=== PATIENT | male | born 1950 | race Caucasian/White ===

== ENCOUNTER 2021-09-10 08:01 | Outpatient (REF) | payer OTHER, SELFPAY ==
[2021-09-10 11:27] LABS: MANUAL DIFF FLAG NO
[2021-09-10 11:49] LABS: Basophils Absolute Auto 0.1 X10*3/uL (0.0-0.2); Basophils Percent Auto 1.5 % (0-2); Eosinophils Absolute Auto 0.4 X10*3/uL (0.0-0.4); Eosinophils Percent Auto 6.6 % (0-4); Hematocrit 50.4 % (42.0-52.0); Hemoglobin 17.2 g/dl (14.0-18.0); Imm Gran Abs Auto 0.01 X10*3/uL (0.00-0.03); Imm Gran Pct Auto 0.2 % (0.0-0.4); Lymphocytes Absolute Auto 1.6 X10*3/uL (1.2-4.9); Lymphocytes Percent Auto 30.1 % (20-40); Mean Corpuscular HGB Conc 34.1 g/dl (31.0-36.0); Mean Corpuscular Hemoglobin 32.3 pg (27.0-33.0); Mean Corpuscular Volume 94.7 fL (80.0-98.0); Mean Platelet Volume 10.4 fL (9.4-12.4); Monocytes Absolute Auto 0.5 X10*3/uL (0.1-1.2); Neutrophils Absolute Auto 2.7 x10*3/uL (2.0-8.3); Neutrophils Percent Auto 51.6 % (45-73); Platelet Count 205 X10*3/uL (160-400); Red Blood Count 5.32 X10*6/uL (4.60-5.80); Red Cell Distribution Width 13.5 % (11.0-16.0); White Blood Count 5.3 X10*3/uL (4.8-10.8)
[2021-09-10 12:05] LABS: Creatinine Urine 315.66 mg/dL; Microalbum/Creatinine Ratio Ur 43.7 ug/mg cr
[2021-09-10 12:08] LABS: Alanine Aminotransferase 56 U/L (0-40); Alkaline Phosphatase 62 U/L (39-117); Anion Gap 13 (12-20); Aspartate Amino Transferase 48 U/L (5-37); Bilirubin Total 1.8 mg/dL (0.0-1.0); Blood Urea Nitrogen 12 mg/dL (9-16); Calcium 9.2 mg/dL (8.4-10.2); Carbon Dioxide 25 mmol/L (22-29); Chloride 107 mmol/L (96-108); Cholesterol 191 mg/dL; Estimated Glomerular Filt Rate > 60; Glucose Fasting 167 mg/dL (60-99); HDL Cholesterol 43 mg/dL; LDL Cholesterol Calculated 125 mg/dl; Potassium 4.5 mmol/L (3.3-5.1); Sodium 140 mmol/L (135-145); Total Protein 6.8 g/dL (6.5-8.0); Triglycerides 115 mg/dL
[2021-09-10 12:20] LABS: Prostate Specific Antigen Scr 0.68 ng/mL (<0.05-4.0); TSH reflex Free T4 0.65 uIU/mL (0.32-4.0)
[2021-09-10 12:28] LABS: Erythrocyte Sedimentation Rate 2 MM/HR (0-15)
[2021-09-10 12:47] LABS: Uric Acid 4.4 mg/dL (3.4-7.0)
[2021-09-12 14:41] LABS: CRP High Sensitivity 1.7 mg/L
== END 2021-09-10 08:02 | disposition home or self-care (01) ==
LOC: HO.HMGCLDS 08:01
PROVIDERS: PCP Family Medicine; Visit Provider Family Medicine
DX: Z00.00 Encounter for general adult medical examination without abnormal findings (principal); M10.9 Gout, unspecified; I10 Essential (primary) hypertension; Z13.29 Encounter for screening for other suspected endocrine disorder; Z12.5 Encounter for screening for malignant neoplasm of prostate
CPT/HCPCS: 36415; 80053; 80061; 82043; 84153; 84443; 84550; 85025; 85652; 86141

== ENCOUNTER 2021-10-07 08:59 | Outpatient (REF) | payer OTHER, SELFPAY ==
[2021-10-07 11:42] LABS: Alanine Aminotransferase 46 U/L (0-40); Albumin Level 4.1 g/dL (3.5-5.0); Alkaline Phosphatase 61 U/L (39-117); Anion Gap 13 (12-20); Aspartate Amino Transferase 41 U/L (5-37); Bilirubin Total 1.4 mg/dL (0.0-1.0); Blood Urea Nitrogen 12 mg/dL (9-16); Calcium 9.2 mg/dL (8.4-10.2); Carbon Dioxide 25 mmol/L (22-29); Chloride 106 mmol/L (96-108); Estimated Glomerular Filt Rate > 60; Glucose Fasting 131 mg/dL (60-99); Potassium 5.2 mmol/L (3.3-5.1); Sodium 139 mmol/L (135-145); Total Protein 6.7 g/dL (6.5-8.0)
== END 2021-10-07 09:00 | disposition home or self-care (01) ==
LOC: HO.WFDLDS 08:59
PROVIDERS: Visit Provider Family Medicine
DX: Z00.00 Encounter for general adult medical examination without abnormal findings (principal); E11.9 Type 2 diabetes mellitus without complications
CPT/HCPCS: 36415; 80053

== ENCOUNTER 2021-11-25 08:51 | Outpatient (REF) | payer OTHER, SELFPAY ==
[2021-11-25 12:51] LABS: Alanine Aminotransferase 44 U/L (0-40); Albumin Level 3.9 g/dL (3.5-5.0); Alkaline Phosphatase 55 U/L (39-117); Anion Gap 14 (12-20); Aspartate Amino Transferase 37 U/L (5-37); Bilirubin Total 1.2 mg/dL (0.0-1.0); Blood Urea Nitrogen 13 mg/dL (9-16); Calcium 9.1 mg/dL (8.4-10.2); Carbon Dioxide 25 mmol/L (22-29); Chloride 105 mmol/L (96-108); Estimated Glomerular Filt Rate > 60; Glucose Fasting 135 mg/dL (60-99); Potassium 4.2 mmol/L (3.3-5.1); Sodium 140 mmol/L (135-145); Total Protein 6.7 g/dL (6.5-8.0)
== END 2021-11-25 08:52 | disposition home or self-care (01) ==
LOC: HO.WFDLDS 08:51
PROVIDERS: Visit Provider Family Medicine
DX: Z00.00 Encounter for general adult medical examination without abnormal findings (principal); R74.8 Abnormal levels of other serum enzymes; M10.9 Gout, unspecified
CPT/HCPCS: 36415; 80053; 84550

== ENCOUNTER 2022-03-04 08:35 | Outpatient (REF) | payer OTHER, SELFPAY ==
[2022-03-04 10:24] LABS: Alanine Aminotransferase 42 U/L (0-40); Albumin Level 4.1 g/dL (3.5-5.0); Alkaline Phosphatase 60 U/L (39-117); Anion Gap 15 (12-20); Aspartate Amino Transferase 31 U/L (5-37); Blood Urea Nitrogen 16 mg/dL (9-16); Calcium 9.6 mg/dL (8.4-10.2); Carbon Dioxide 26 mmol/L (22-29); Chloride 105 mmol/L (96-108); Estimated Glomerular Filt Rate > 60; Glucose Random 123 mg/dL (60-115); Potassium 4.5 mmol/L (3.3-5.1); Sodium 141 mmol/L (135-145); Total Protein 6.8 g/dL (6.5-8.0)
[2022-03-04 10:50] LABS: Bilirubin Total 1.7 mg/dL (0.0-1.0)
== END 2022-03-04 08:36 | disposition home or self-care (01) ==
LOC: HO.LAB 08:35
PROVIDERS: PCP Family Medicine; Visit Provider Family Medicine
DX: R74.8 Abnormal levels of other serum enzymes (principal)
CPT/HCPCS: 36415; 80053

== ENCOUNTER 2022-06-02 10:12 | Outpatient (REF) | payer OTHER, SELFPAY ==
[2022-06-02 11:23] LABS: Estimated Average Glucose 131 mg/dL; Hemoglobin A1c % 6.2 %
[2022-06-02 11:28] LABS: Alanine Aminotransferase 45 U/L (0-40); Albumin Level 4.2 g/dL (3.5-5.0); Alkaline Phosphatase 61 U/L (39-117); Anion Gap 14 (12-20); Aspartate Amino Transferase 31 U/L (5-37); Bilirubin Total 1.7 mg/dL (0.0-1.0); Blood Urea Nitrogen 15 mg/dL (9-16); Calcium 9.9 mg/dL (8.4-10.2); Carbon Dioxide 27 mmol/L (22-29); Chloride 106 mmol/L (96-108); Estimated Glomerular Filt Rate > 60; Glucose Fasting 131 mg/dL (60-99); Potassium 5.3 mmol/L (3.3-5.1); Sodium 142 mmol/L (135-145); Total Protein 7.1 g/dL (6.5-8.0)
== END 2022-06-02 10:13 | disposition home or self-care (01) ==
LOC: HO.LAB 10:12
PROVIDERS: PCP Family Medicine; Visit Provider Family Medicine
DX: Z00.00 Encounter for general adult medical examination without abnormal findings (principal); R74.8 Abnormal levels of other serum enzymes; R73.01 Impaired fasting glucose
CPT/HCPCS: 36415; 80053; 83036

== ENCOUNTER 2022-06-27 10:14 | Outpatient (REF) | payer OTHER, SELFPAY ==
--- NOTE | ~2022-06-27 | US_ITS ---
EXAMINATION: US ABDOMEN LIMITED WITH LIVER ELASTOGRAPHY CLINICAL INFORMATION: Abnormal liver function tests COMPARISON: None available. TECHNIQUE: Real-time imaging of the abdominal viscera. Noninvasive ultrasound liver fibrosis assessment is performed using Ashlyn ElastPQ point quantification shear wave elastography (2D-SWE) with a C5-2 MHz transducer. Multiple elastography samples are obtained. FINDINGS: PANCREAS: Normal. LIVER: Liver echotexture is slightly increased. The liver is normal in size and contour. No focal lesion or intrahepatic biliary duct dilatation. The right lobe measures 14 cm in length. The left lobe measures 10 cm in length. Portal flow is normal Shear wave liver elastography median stiffness is 2 m/s (reference: normal median stiffness is 1.3 m/s or less). IQR/median stiffness to assess sampling precision is 0.02 (reference: good quality data set is IQR/median stiffness of 0.15 or less). Confidence interval is 60%. GALLBLADDER: There is a 6 x 3 x 7 mm echogenic nonmobile nonshadowing density adjacent to the gallbladder wall questionable a stone adherent to the gallbladder wall or polyp. The gallbladder is otherwise normal. No wall thickening. COMMON BILE DUCT: Normal in caliber measuring 0.4 cm in diameter. RIGHT KIDNEY: Normal. No hydronephrosis. No renal calculi or focal parenchymal lesions. The kidney measures 11.4 cm in maximum dimension. FREE FLUID: None. US/US abdomen ugarte w elastography IMPRESSION: 1. Impression: echogenic liver. Questions small adherent gallstone versus gallbladder wall polyp. 2. Liver elastography: Adequate liver sampling. Increased liver stiffness suggestive of compensated advanced chronic liver disease but need further test for confirmation. REFERENCE: Society of Radiologists in Ultrasound Liver Stiffness Thresholds (2020): LIVER STIFFNESS THRESHOLDS: *Liver Stiffness equal or less than 1.3 m/s: High probability of being normal. *Liver Stiffness less than 1.7 m/s: In the absence of other known clinical signs, rules out compensated advanced chronic liver disease. *Liver Stiffness 1.7-2.1 m/s: Suggestive of compensated advanced chronic liver disease but need further test for confirmation. *Liver Stiffness over 2.1 m/s: Rules in compensated advanced chronic liver disease. *Liver Stiffness over 2.4 m/s: Suggestive of clinically significant portal hypertension. QUALITY OF DATA SET: *IQR/Median value equal or less than 0.15 implies a quality data set. *IQR/Median value over 0.15 implies a poor quality data set. SIGNIFICANT CHANGE FROM PRIOR EXAM: Significant change if liver stiffness measurement is 10% or greater from prior exam. OTHER CONSIDERATIONS: The stage of liver fibrosis may be overestimated in the setting of acute hepatitis, liver inflammation, elevated liver function tests, hepatic vascular congestion, obstructive cholestasis, non-fasting state, and infiltrative diseases such as amyloidosis and lymphoma. In some patients with NAFLD, the liver stiffness thresholds for compensated advanced chronic liver disease may be lower. In causes other than viral hepatitis and NAFLD, liver stiffness thresholds are not well established.
== END 2022-06-27 10:15 | disposition home or self-care (01) ==
LOC: HO.US 10:14
PROVIDERS: PCP Family Medicine; Visit Provider Family Medicine
DX: R74.8 Abnormal levels of other serum enzymes (principal)
CPT/HCPCS: 76705; 76981

== ENCOUNTER 2022-12-05 08:28 | Outpatient (AMB) | payer OTHER, SELFPAY ==
--- NOTE | 2022-12-05 08:31 | A.OFFPC_ITS ---
Vital Signs 12/05/22 08:43 Height 6 ft 4 in Weight 236 lb 4 oz BMI 28.8 BP 122/58 L Blood Pressure Location Lt brachial Position Sitting Respiration 15 Pulse 84 Pulse Source Pulse Oximeter Temp 98.6 F Temp Source Oral Pulse Oximetry (%) 96 Oxygen Delivery Method Room Air Intake Visit Reasons: f/u diabetes Intake Note: Patient is here to follow up with diabetic care, last A1C was on 08/31/22 with a result of 6.1%. Patient has external labs scanned into his chart dated 08/23/22. Patient reports he will need refills of Lorazepam and Prednisone. 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 Partial refill upon request. 30 days metformin 500 mg PO BIDWMEAL 90 days prednisone 10 mg PO DAILY 10 days valsartan 160 mg PO DAILY 90 days Tobacco use date assessed: 06/05/22 Fall risk assessment: No Falls in past year Last assessed Fall Risk: 12/05/22 Dental Screening Dental Screen Date: 12/05/22 Did you have a dental visit in the last 12 months?: Yes Did you have a dental problem in the last 6 months where you did not have access to dental care?: No Was dental information given to patient?: Patient has dentist HPI f/u diabetes HPI Details 72 y/o male presents to f/u diabetes and anxiety. Last A1c 08/31/22 6.1%. A1c today 12/05/22 is 6.1%. He is on metformin 500mg b.i.d. Blood pressure today 122/58. He is on valsartan 160mg daily. He is on lorazepam and citalopram 20mg for his anxiety. PFSH Medical History Diverticulitis Diverticulitis large intestine Surgical History History of open reduction and internal fixation (ORIF) procedure Family History Mother Cerebral hemorrhage Father Myocardial infarction Social History Housing: House Patient Tobacco Use Status: Never used Tobacco e-Cigarette/Vaping Use: Never Used Second Hand Smoke Exposure: No service: No Current occupational status: retired Current occupational exposures/hazards: No Cognitive needs: No Hearing needs: No Vision needs: No Questionnaire Thrive Questionnaire Date Thrive assessed: 06/05/22 MONSTER-7 AMB Questionnaire MONSTER-7 Date MONSTER - 7 assessed: 06/05/22 Source: Developed by Drs. Clarke Virgen, Krystle Kimbrough, Trenton Perea and colleagues, with an educational ciara from [employer]. Physical exam (Primary Care) Vital Signs: Last Vital Signs Temp 98.6 F 12/05/22 08:43 Pulse 84 12/05/22 08:43 Resp 15 12/05/22 08:43 BP 122/58 L 12/05/22 08:43 Pulse Ox 96 12/05/22 08:43 Oxygen Delivery Method Room Air 12/05/22 08:43 BMI result Body Mass Index 28.8 Tobacco/Smoking Status: Tobacco use Status Tobacco use date assessed 06/05/22 12/05/22 08:34 Patient Tobacco Use Status Never used Tobacco 12/05/22 08:34 e-Cigarette/Vaping Use Never Used 12/05/22 08:34 Thrive Assessment: Date of Thrive Assessment Date Thrive assessed 06/05/22 12/05/22 08:34 Results AMB Hemoglobin A1c AMB Hemoglobin A1c 6.1 % Last Edit by Alma Rosa Salas on 12/05/22 08:5 6 Assessment and Plan Assessment & Plan (1) Diabetes: Code(s): E11.9 - Type 2 diabetes mellitus without complications Plan: A1c steady as 6.1%. Goal is less than 7.0% Continue metformin (2) Anxiety: Code(s): F41.9 - Anxiety disorder, unspecified Plan: Stable on citalopram and lorazepam Continue current medication regimen (3) Essential hypertension: Code(s): I10 - Essential (primary) hypertension Plan: Blood pressure is controlled. Goal is less than 140/90 Continue valsartan Medications: Refilled prednisone 10 mg PO DAILY 10 tabs 0RF 10 days lorazepam 1-2mg PO bedtime PRN; [employer]Pat verified. Partial refill upon request. 15 tabs 0RF anxiety 30 days Coding Level of Care Code Est Pt Level 4 (90795) Diagnoses Diabetes E11.9 Anxiety F41.9 Essential hypertension I10
[2022-12-05 08:43] VITALS: BP 122/58; PULSE 84; RESP 15; TEMP 37; O2SAT 96; BMI 28.8
== END 2022-12-05 09:00 | disposition home or self-care (01) ==
PROVIDERS: PCP Family Medicine; Visit Provider Family Medicine
DX: E11.9 Type 2 diabetes mellitus without complications (principal); F41.9 Anxiety disorder, unspecified; I10 Essential (primary) hypertension
CPT/HCPCS: 99214

== ENCOUNTER 2023-05-21 10:34 | Outpatient (REF) | payer OTHER, SELFPAY ==
[2023-05-21 13:40] LABS: MANUAL DIFF FLAG NO
[2023-05-21 13:49] LABS: Basophils Absolute Auto 0.1 X10*3/uL (0.0-0.2); Basophils Percent Auto 0.9 % (0-2); Eosinophils Absolute Auto 0.5 X10*3/uL (0.0-0.4); Hematocrit 47.6 % (42.0-52.0); Hemoglobin 16.4 g/dl (14.0-18.0); Imm Gran Abs Auto 0.02 X10*3/uL (0.00-0.03); Imm Gran Pct Auto 0.4 % (0.0-0.4); Lymphocytes Absolute Auto 2.1 X10*3/uL (1.2-4.9); Lymphocytes Percent Auto 36.4 % (20-40); Mean Corpuscular HGB Conc 34.5 g/dl (31.0-36.0); Mean Corpuscular Hemoglobin 31.8 pg (27.0-33.0); Mean Corpuscular Volume 92.2 fL (80.0-98.0); Mean Platelet Volume 9.6 fL (9.4-12.4); Monocytes Absolute Auto 0.4 X10*3/uL (0.1-1.2); Monocytes Percent Auto 7.8 % (2-11); Neutrophils Absolute Auto 2.6 x10*3/uL (2.0-8.3); Neutrophils Percent Auto 46.5 % (45-73); Platelet Count 193 X10*3/uL (160-400); Red Blood Count 5.16 X10*6/uL (4.60-5.80); Red Cell Distribution Width 12.8 % (11.0-16.0); White Blood Count 5.6 X10*3/uL (4.8-10.8)
[2023-05-21 14:16] LABS: Appearance Urine Clear; Color Urine Yellow; Glucose Urine UA Negative (Negative); Leukocyte Esterase Urine Negative (Negative); Nitrite Urine Negative (Negative); Urine Blood Negative (Negative); Urine Ketones Negative (Negative); Urine Protein Trace mg/dL (Neg-Trace)
[2023-05-21 14:26] LABS: Creatinine Urine 142.56 mg/dL; Microalbum/Creatinine Ratio Ur 80.6 ug/mg cr (<30)
[2023-05-21 14:32] LABS: Alanine Aminotransferase 26 U/L (0-40); Albumin Level 3.7 g/dL (3.5-5.0); Alkaline Phosphatase 52 U/L (39-117); Anion Gap 9 (12-20); Aspartate Amino Transferase 24 U/L (5-37); Bilirubin Total 0.9 mg/dL (0.0-1.0); Blood Urea Nitrogen 15 mg/dL (9-16); Calcium 9.2 mg/dL (8.4-10.2); Carbon Dioxide 28 mmol/L (22-29); Chloride 106 mmol/L (96-108); Cholesterol 154 mg/dL (<200); Estimated Glomerular Filt Rate > 60; Glucose Fasting 123 mg/dL (60-99); HDL Cholesterol 40 mg/dL (>40); LDL Cholesterol Calculated 93 mg/dL (<100); Potassium 4.3 mmol/L (3.3-5.1); Sodium 139 mmol/L (135-145); Total Protein 6.9 g/dL (6.5-8.0); Triglycerides 106 mg/dL (<150)
[2023-05-21 14:47] LABS: TSH reflex Free T4 0.93 uIU/mL (0.32-4.0)
[2023-05-21 14:49] LABS: Prostate Specific Antigen Scr 1.17 ng/mL (<0.05-4.0)
== END 2023-05-21 10:35 | disposition home or self-care (01) ==
LOC: HO.WFDLDS 10:34
PROVIDERS: Visit Provider Family Medicine
DX: Z00.00 Encounter for general adult medical examination without abnormal findings (principal); Z12.5 Encounter for screening for malignant neoplasm of prostate; I10 Essential (primary) hypertension
CPT/HCPCS: 36415; 80053; 80061; 81003; 82043; 82570; 84153; 84443; 85025

== ENCOUNTER 2023-05-23 10:56 | Outpatient (AMB) | payer OTHER, SELFPAY ==
--- NOTE | 2023-05-23 10:59 | A.OFFPC_ITS ---
Vital Signs 05/23/23 11:02 Height 6 ft 4 in Weight 237 lb 8 oz BMI 28.9 BP 128/78 Blood Pressure Location Lt brachial Position Sitting Pulse 81 Pulse Source Pulse Oximeter Temp 97 F Temp Source Oral Pulse Oximetry (%) 96 Oxygen Delivery Method Room Air Intake Visit Reasons: CPE with f/u labs and health maint. Intake Note: Patient is here for physical and to follow up on labs. Allergies No Known Allergies Allergy (Verified 05/23/23 11:08) Tobacco use date assessed: 05/23/23 Fall risk assessment: No Falls in past year Last assessed Fall Risk: 05/23/23 Dental Screening Dental Screen Date: 05/23/23 Did you have a dental visit in the last 12 months?: Yes Did you have a dental problem in the last 6 months where you did not have access to dental care?: No Was dental information given to patient?: Patient has dentist HPI CPE with f/u labs and health maint. HPI Details 72 y/o male presents for a CPE with f/u labs and health maintenance. Labs were drawn 05/21/23. Reviewed labs with pt. Elevated fasting glucose of 123 and last A1c in Dec. 6.1%. Triglycerides 106. TC 154. LDL 93. HDL 40. A1c today 05/23/23 6.7%. Pt notes recent colonsocopy and recommended 5 year f/u per pt. [facility] Medical History Diverticulitis Diverticulitis large intestine Surgical History History of open reduction and internal fixation (ORIF) procedure Family History Mother Cerebral hemorrhage Father Myocardial infarction Social History Housing: House Patient Tobacco Use Status: Never used Tobacco e-Cigarette/Vaping Use: Never Used Second Hand Smoke Exposure: No service: No Current occupational status: retired Current occupational exposures/hazards: No Cognitive needs: No Hearing needs: No Vision needs: No Questionnaire PHQ-9 Over the last 2 weeks, how often have you been bothered by any of the following problems? 1. Little interest or pleasure in doing things: not at all 2. Feeling down, depressed, or hopeless: not at all 3. Trouble falling or staying asleep, or sleeping too much: not at all 4. Feeling tired or having little energy: not at all 5. Poor appetite or overeating: not at all 6. Feeling bad about yourself - or that you are a failure or have let yourself or your family down: not at all 7. Trouble concentrating on things, such as reading the newspaper or watching television: not at all 8. Moving or speaking so slowly that other people could have noticed. Or the opposite - being so fidgety or restless that you have been moving around a lot more than usual: not at all 9. Thoughts that you would be better off or of hurting yourself in some way: not at all Total score: 0 Source: Developed by Drs. Clarke Virgen, Krystle Kimbrough, Trenton Perea and colleagues, with an educational ciara from [employer]. Thrive Questionnaire Date Thrive assessed: 05/23/23 I am a: Patient What is your living situation today?: I have a steady place to live Within the past 12 months, did the food you bought not last and you didn't have the money to get more?: Never true Within the past 12 months, did you worry whether your food would run out before you got money to buy more?: Never true Do you have trouble paying for medicines?: No Do you have trouble getting transportation to medical appointments?: No Do you have trouble paying your heating and electricity bill?: No Do you have trouble taking care of your child, family member or friend?: No Do you have trouble with day-to-day activities such as bathing, preparing meals, shopping, managing finances, etc.?: No Are you currently unemployed and looking for a job?: No Are you interested in more education?: No THRIVE Score: 0 AUDIT C Alcohol Use Questionnaire (AUDIT-C) 1. How often do you have a drink containing alcohol?: Monthly or less 2. How many drinks containing alcohol do you have on a typical day when you are drinking?: 1 or 2 3. How often do you have six or more drinks on one occasion?: Never Total Score: 1 MONSTER-7 AMB Questionnaire MONSTER-7 Date MONSTER - 7 assessed: 05/23/23 Feeling nervous, anxious, or on edge: 0 = Not at all Not being able to stop or control worryin = Not at all Worrying too much about different things: 0 = Not at all Trouble relaxin = Not at all Being so restless that it is hard to sit still: 0 = Not at all Becoming easily annoyed or irritable: 0 = Not at all Feeling afraid as if something awful might happen: 0 = Not at all Total MONSTER-7 score (0-4 normal; 5-9 mild; 10-14 moderate; 15-21 severe): 0 Source: Developed by Drs. Clarke Virgen, Krystle Kimbrough, Trenton Perea and colleagues, with an educational ciara from [employer]. Review of Systems Const Denies chills, Denies fatigue, Denies fever(s), Denies headache(s) and Denies weakness Eyes Denies change in vision ENT Denies dizziness, Denies headache(s), Denies hearing loss, Denies nasal congestion, Denies sinus pain, Denies sinus pressure and Denies sore throat Card Denies chest pain, Denies lightheadedness, Denies dyspnea and Denies other (palpitations) Resp Denies cough, Denies dyspnea and Denies wheezing GI Denies abdominal pain, Denies melena, Denies hematochezia, Denies change in bowel habits, Denies dyspepsia and Denies nausea Denies hematuria and Denies dysuria Musc Denies abnormal gait, Denies myalgias, Denies arthralgias, Denies numbness and Denies tingling Skin/Breast Denies rash, Denies unusual bruising and Denies wounds Neuro Denies abnormal gait, Denies dizziness, Denies headache(s), Denies memory loss, Denies numbness, Denies Sensory deficit (Neuro), Denies tingling and Denies weakness Psych Denies anxiety, Denies depression and Denies memory loss Endo Denies cold intolerance, Denies fatigue, Denies heat intolerance, Denies polydipsia and Denies polyuria Man/Lymph Denies easy bleeding and Denies easy bruising Aller/Immun Denies wheezing Physical exam (Primary Care) Vital Signs: Last Vital Signs Temp 97 F 05/23/23 11:02 Pulse 81 05/23/23 11:02 BP 128/78 05/23/23 11:02 Pulse Ox 96 05/23/23 11:02 Oxygen Delivery Method Room Air 05/23/23 11:02 BMI result Body Mass Index 28.9 Tobacco/Smoking Status: Tobacco use Status Tobacco use date assessed 05/23/23 05/23/23 11:12 Patient Tobacco Use Status Never used Tobacco 05/23/23 10:59 e-Cigarette/Vaping Use Never Used 05/23/23 10:59 PHQ-9: PHQ-9 Score PHQ-9: Total score 0 05/23/23 11:19 Thrive Assessment: Date of Thrive Assessment Date Thrive assessed 05/23/23 05/23/23 11:12 Const General: no acute distress, well developed, alert and awake Nutritional Appearance: well nourished Orientation/consciousness: patient oriented x3 HENMT Head: Yes normocephalic and Yes atraumatic Ears: hearing grossly normal bilaterally and TM's normal bilaterally General nose exam: Normal external nose present and Normal nares present Mouth: Normal oral and palatal mucosa present and moist mucous membranes Teeth and gingiva: dentition normal Throat: Yes posterior oropharynx normal Eyes General: appearance normal, both eyes and all related structures Pupils: Equal, round and reactive pupils present and Pupil accommodation reflex normal EOM: EOMs intact bilaterally Neck Neck: Yes normal visual inspection, Yes no lymphadenopathy and Yes trachea midline Thyroid: Thyroid normal Carotids: no bruits Lymphatic: no lymphadenopathy noted Chest Chest palpation & inspection: normal inspection of the chest Resp Effort & Inspection: normal respiratory effort Auscultation: clear to auscultation bilaterally Cardio Rate: regular rate Rhythm: regular rhythm Heart sounds: S1 normal heart sound present, S2 normal heart sound present, no gallops, no murmurs and no rubs Bruits: no abdominal aortic bruits and no carotid bruits GI Palpation (GI): No Abdominal aortic bruit present, Soft to palpation, nontender, No hepatosplenomegaly present and No Rebound tenderness present Auscultation: normal bowel sounds General: Yes no CVA tenderness Back/Spine/Pelvis Back: no CVA tenderness Cervical Spine: cervical ROM normal and No Cervical spine tenderness Thoracic/Lumbar Spine: thoraco-lumbar ROM normal, No pain with thoraco-lumbar ROM, No thoracic spinal tenderness and No lumbar spinal tenderness Skin Lesions: no lesions Rashes: no rashes Trauma: no lacerations or abrasions Wounds: no wounds Nails: normal Neuro General: patient oriented x3 Cranial nerves: Yes Equal, round and reactive pupils present Cognition (Neuro): normal cognition Gait exam (Neuro): Normal gait present Motor exam (neuro): 5/5 motor strength present throughout Sensory Exam: No Sensory deficit (Neuro) Deep tendon reflexes (DTR's): Right patellar reflex intensity grade: 2+ and Left patellar reflex intensity grade: 2+ Extrem General: Yes normal to inspection and No edema Psych Appearance: grossly normal Affect: normal affect Attitude: cooperative Thought process: Normal thought process present Results AMB Hemoglobin A1c AMB Hemoglobin A1c 6.7 % Last Edit by Ariela Jett CMA on 05/23/23 11:24 Assessment and Plan Assessment & Plan (1) Adult general medical exam: Code(s): Z00.00 - Encounter for general adult medical examination without abnormal findings Plan: 72-year-old?male?presents?for?complete?physical?exam Encouraged?healthy?diet?with?active?lifestyle?and?plenty?of?exercise (2) Diabetes: Code(s): E11.9 - Type 2 diabetes mellitus without complications Plan: A1c?has?climbed?but?is?still?less?than?7.0% Encouraged?diabetic?diet,?exercise?and?weight?loss Continue?current?medication?regimen (3) Essential hypertension: Code(s): I10 - Essential (primary) hypertension Plan: Blood?pressure?is?controlled.??Goal?is?less?than?140/90 Continue?current?medication (4) Screening for colon cancer: Code(s): Z12.11 - Encounter for screening for malignant neoplasm of colon Plan: Recent?colonoscopy?at?[facility],? Advised?to?follow-up?in?5?years. Up-to-date (5) Screening for prostate cancer: Code(s): Z12.5 - Encounter for screening for malignant neoplasm of prostate Plan: PSA?is?within?normal?range Continue?annual?screen Orders: Orders AMB Hemoglobin A1c Today Z13.9 - Encounter for screening, unspecified Medications: New cetirizine (All Day Allergy (cetirizine)) 10 mg PO DAILY 90 days PRN 90 tabs 0RF allergy symptoms Coding Level of Care Code Est Pt Level 4 (68891) Diagnoses Adult general medical exam Z00.00 Diabetes E11.9 Essential hypertension I10 Screening for colon cancer Z12.11 Screening for prostate cancer Z12.5
[2023-05-23 11:02] VITALS: BP 128/78; PULSE 81; TEMP 36.1; O2SAT 96; BMI 28.9
== END 2023-05-23 11:37 | disposition home or self-care (01) ==
PROVIDERS: PCP Family Medicine; Visit Provider Family Medicine
DX: Z00.00 Encounter for general adult medical examination without abnormal findings (principal); E11.9 Type 2 diabetes mellitus without complications; I10 Essential (primary) hypertension; Z12.11 Encounter for screening for malignant neoplasm of colon; Z12.5 Encounter for screening for malignant neoplasm of prostate
CPT/HCPCS: 83036; 99397

== ENCOUNTER 2023-08-22 08:14 | Outpatient (AMB) | payer OTHER, SELFPAY ==
[2023-08-22 08:21] VITALS: BP 130/78; PULSE 59; RESP 14; TEMP 36.4; O2SAT 95; BMI 30.9
--- NOTE | 2023-08-22 08:21 | MHC.PC.OV ---
Vital Signs 08/22/23 08:21 Height 6 ft 4 in Weight 254 lb 4 oz BMI 30.9 BP 130/78 Blood Pressure Location Lt brachial Position Sitting Respiration 14 Pulse 59 Pulse Source Pulse Oximeter Temp 97.6 F Temp Source Temporal Artery Scan Pulse Oximetry (%) 95 Oxygen Delivery Method Room Air Intake Visit Reasons: f/u diabetes Intake Note: Patient states he has itching on eyebrows and chin. 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 Partial refill upon request. 30 days metformin 500 mg PO BIDWMEAL 90 days prednisone 10 mg PO DAILY PRN valsartan 160 mg PO DAILY 90 days Tobacco use date assessed: 05/23/23 Fall risk assessment: No Falls in past year Last assessed Fall Risk: 08/22/23 Dental Screening Dental Screen Date: 05/23/23 HPI f/u diabetes HPI Details 73 y/o male presents to f/u diabetes and hypertension. Last A1c 05/23/23 6.7%. A1c today 08/22/23 is 6.8%. He is on metformin 500mg. Blood pressure today is 130/78. He is on valsartan 160mg daily. Pt has complaitns of itching on his eyebrows/chin. HPI Comments History of Present Illness Details Documentation assistance for Rashawn Arechiga MD, was provided by Ti Luna, Director Of User Experience on 08/22/2023 8:55 AM EST. Miller, Dr. Arechiga, have read, observed, and verified documentation. PFSH Medical History Diverticulitis Diverticulitis large intestine Surgical History History of open reduction and internal fixation (ORIF) procedure Family History Mother Cerebral hemorrhage Father Myocardial infarction Social History Housing: House Patient Tobacco Use Status: Never used Tobacco e-Cigarette/Vaping Use: Never Used Second Hand Smoke Exposure: No service: No Current occupational status: retired Current occupational exposures/hazards: No Cognitive needs: No Hearing needs: No Vision needs: No Questionnaire Thrive Questionnaire Date Thrive assessed: 05/23/23 MONSTER-7 AMB Questionnaire MONSTER-7 Date MONSTER - 7 assessed: 05/23/23 Source: Developed by Drs. Clarke Virgen, Krystle Kimbrough, Trenton Perea and colleagues, with an educational ciara from [employer]. Review of Systems Const Denies chills, Denies fatigue, Denies fever(s), Denies headache(s) and Denies weakness ENT Denies dizziness and Denies headache(s) Card Denies dyspnea Resp Denies cough, Denies dyspnea, Denies wheezing and Denies other (shortness of breath) Musc Denies numbness and Denies tingling Neuro Denies dizziness, Denies headache(s), Denies numbness, Denies tingling and Denies weakness Psych Denies anxiety and Denies depression Endo Denies fatigue Aller/Immun Denies wheezing Physical exam (Primary Care) Vital Signs: Last Vital Signs Temp 97.6 F 08/22/23 08:21 Pulse 59 08/22/23 08:21 Resp 14 08/22/23 08:21 BP 130/78 08/22/23 08:21 Pulse Ox 95 08/22/23 08:21 Oxygen Delivery Method Room Air 08/22/23 08:21 BMI result Body Mass Index 30.9 Tobacco/Smoking Status: Tobacco use Status Tobacco use date assessed 05/23/23 08/22/23 08:24 Patient Tobacco Use Status Never used Tobacco 08/22/23 08:24 e-Cigarette/Vaping Use Never Used 08/22/23 08:24 Thrive Assessment: Date of Thrive Assessment Date Thrive assessed 05/23/23 08/22/23 08:24 Const General: well developed; No acute distress Nutritional Appearance: well nourished Orientation/consciousness: patient oriented x3 HENMT Head: Yes normocephalic and Yes atraumatic Eyes General: appearance normal, both eyes and all related structures Pupils: Equal, round and reactive pupils present EOM: EOMs intact bilaterally Resp Effort & Inspection: normal respiratory effort Auscultation: clear to auscultation bilaterally Cardio Rate: regular rate Rhythm: regular rhythm Heart sounds: S1 normal heart sound present, S2 normal heart sound present, no gallops, no murmurs and no rubs Neuro General: patient oriented x3 and gait normal Cranial nerves: Yes Equal, round and reactive pupils present Psych Affect: normal affect Results AMB Hemoglobin A1c AMB Hemoglobin A1c 6.8 % Last Edit by Ariela Jett CMA on 08/22/23 08:41 Results Reviewed Results Reviewed: Laboratory Last Values Hgb A1c (Clinic) 6.8 % (4.0-6.0) H 08/22/23 08:34 Assessment and Plan Assessment & Plan (1) Essential hypertension: Code(s): I10 - Essential (primary) hypertension Plan: There?is?controlled.??Goal?is?less?than?140/90 Continue?current?medication (2) Diabetes: Code(s): E11.9 - Type 2 diabetes mellitus without complications Plan: A1c?climbed?to?6.8%. Still?controlled.??Goal?is?less?than?7.0% Continue?current?medication Encouraged?diet?and?weight?loss (3) Impetigo: Code(s): L01.00 - Impetigo, unspecified Plan: Gave?him?a?script?for?mupirocin?again. He?can?also?use?Hibiclens?OTC?for?prevention (4) Microalbuminuria: Code(s): R80.9 - Proteinuria, unspecified Plan: Following?microalbuminuria He?will?get?urine?studies?and?labs?drawn?prior?to?next?visit Orders: Orders Comprehensive [place]. Panel Fast Today I10 - Essential (primary) hypertension, Z00.00 - Encounter for general adult medical examination without abnormal findings Lipid Panel Today E11.9 - Type 2 diabetes mellitus without complications, Z00.00 - Encounter for general adult medical examination without abnormal findings AMB Hemoglobin A1c Today Z13.9 - Encounter for screening, unspecified Microalbumin, Random (w Creat) Today I10 - Essential (primary) hypertension Medications: Changed From prednisone 10 mg PO DAILY 10 days 10 tabs 0RF To prednisone 10 mg PO DAILY PRN Refilled mupirocin 2% 1 appl topical BID 10 days 15 grams 0RF Coding Level of Care Code Est Pt Level 4 (04525) Diagnoses Essential hypertension I10 Diabetes E11.9 Impetigo L01.00 Microalbuminuria R80.9
== END 2023-08-22 09:08 | disposition home or self-care (01) ==
PROVIDERS: PCP Family Medicine; Visit Provider Family Medicine
DX: I10 Essential (primary) hypertension (principal); E11.9 Type 2 diabetes mellitus without complications; L01.00 Impetigo, unspecified; R80.9 Proteinuria, unspecified
CPT/HCPCS: 83036; 99214

== ENCOUNTER 2023-11-01 07:08 | Outpatient (REF) | payer OTHER, SELFPAY ==
[2023-11-01 08:46] LABS: Alanine Aminotransferase 31 U/L (0-40); Alkaline Phosphatase 49 U/L (39-117); Anion Gap 10 (12-20); Aspartate Amino Transferase 26 U/L (5-37); Bilirubin Total 1.1 mg/dL (0.0-1.0); Blood Urea Nitrogen 13 mg/dL (9-16); Calcium 9.9 mg/dL (8.4-10.2); Carbon Dioxide 29 mmol/L (22-29); Chloride 107 mmol/L (96-108); Cholesterol 160 mg/dL (<200); Estimated Glomerular Filt Rate > 60; Glucose Fasting 124 mg/dL (60-99); HDL Cholesterol 45 mg/dL (>40); LDL Cholesterol Calculated 94 mg/dL (<100); Potassium 4.4 mmol/L (3.3-5.1); Sodium 142 mmol/L (135-145); Total Protein 6.9 g/dL (6.5-8.0); Triglycerides 108 mg/dL (<150)
[2023-11-01 08:49] LABS: Creatinine Urine 168.86 mg/dL; Microalbum/Creatinine Ratio Ur 39.6 ug/mg cr (<30)
== END 2023-11-01 07:09 | disposition home or self-care (01) ==
LOC: HO.LAB 07:08
PROVIDERS: PCP Family Medicine; Visit Provider Family Medicine
DX: Z00.00 Encounter for general adult medical examination without abnormal findings (principal); E11.9 Type 2 diabetes mellitus without complications; I10 Essential (primary) hypertension
CPT/HCPCS: 36415; 80053; 80061; 82043; 82570

== ENCOUNTER 2023-11-02 09:14 | Outpatient (AMB) | payer OTHER, SELFPAY ==
--- NOTE | 2023-11-02 09:25 | A.OFFPC_ITS ---
Vital Signs 11/02/23 09:27 Height 6 ft 4 in Weight 256 lb 8 oz BMI 31.2 BP 122/62 Blood Pressure Location Lt brachial Position Sitting Pulse 63 Pulse Source Pulse Oximeter Pulse Oximetry (%) 94 Oxygen Delivery Method Room Air Intake Visit Reasons: f/u diabetes, hypertension Intake Note: Patient is here to follow up on HTN, DM. Evp Operations Required: No Specimen Collector: Not Required per policy Accompanied by: Self / Same As Patient Allergies No Known Allergies Allergy (Verified 11/02/23 09:27) Medication List - Last Reconciled 11/02/23 by Rashawn Arechiga MD albuterol sulfate 90 mcg/actuation 1 puff PO Q6H PRN 30 days ergocalciferol (vitamin D2) 1,250 mcg PO QWEEK 90 days ezetimibe 10 mg PO DAILY 90 days fluticasone furoate-vilanterol 200-25 mcg/dose (Breo Ellipta) 1 ea inhalation DAILY 30 days indomethacin 50 mg PO TID 10 days lorazepam 1-2mg PO bedtime PRN; [employer] verified. Partial refill upon request. 30 days metformin 500 mg PO BIDWMEAL 90 days mupirocin 2% 1 appl topical BID 10 days prednisone 10 mg PO DAILY PRN valsartan 160 mg PO DAILY 90 days Tobacco use date assessed: 11/02/23 Fall risk assessment: No Falls in past year Last assessed Fall Risk: 11/02/23 Dental Screening Dental Screen Date: 05/23/23 HPI f/u diabetes, hypertension HPI Details 73 y/o male presents to f/u diabetes, hy pertension. Blood pressure today 122/62. He is on valsartan 160mg daily. Last A1c 08/22/23 6.8%. A1c today 11/02/23 is 6.5%. [facility] Medical History Diverticulitis Diverticulitis large intestine Surgical History History of open reduction and internal fixation (ORIF) procedure Family History Mother Cerebral hemorrhage Father Myocardial infarction Social History (Updated 11/02/23 @ 09:32 by ISAAC Tierney) Housing: House Alcohol intake: never Patient Tobacco Use Status: Never used Tobacco e-Cigarette/Vaping Use: Never Used Second Hand Smoke Exposure: No service: No Current occupational status: retired Current occupational exposures/hazards: No Cognitive needs: No Hearing needs: No Vision needs: No Questionnaire Thrive Questionnaire Date Thrive assessed: 05/23/23 MONSTER-7 AMB Questionnaire MONSTER-7 Date MONSTER - 7 assessed: 05/23/23 Source: Developed by Drs. Clarke Virgen, Krystle Kimbrough, Trenton Perea and colleagues, with an educational ciara from [employer]. Review of Systems Const Denies chills, Denies fatigue, Denies fever(s), Denies headache(s) and Denies weakness ENT Denies dizziness and Denies headache(s) Card Denies dyspnea Resp Denies cough, Denies dyspnea, Denies wheezing and Denies other (shortness of breath) Musc Denies numbness and Denies tingling Neuro Denies dizziness, Denies headache(s), Denies numbness, Denies tingling and Denies weakness Psych Denies anxiety and Denies depression Endo Denies fatigue Aller/Immun Denies wheezing Physical exam (Primary Care) Vital Signs: Last Vital Signs Pulse 63 11/02/23 09:27 BP 122/62 11/02/23 09:27 Pulse Ox 94 11/02/23 09:27 Oxygen Delivery Method Room Air 11/02/23 09:27 BMI result Body Mass Index 31.2 Tobacco/Smoking Status: Tobacco use Status Tobacco use date assessed 11/02/23 11/02/23 09:32 Patient Tobacco Use Status Never used Tobacco 11/02/23 09:32 e-Cigarette/Vaping Use Never Used 11/02/23 09:32 Thrive Assessment: Date of Thrive Assessment Date Thrive assessed 05/23/23 11/02/23 09:32 Const General: well developed; No acute distress Nutritional Appearance: well nourished Orientation/consciousness: patient oriented x3 HENMT Head: Yes normocephalic and Yes atraumatic Eyes General: appearance normal, both eyes and all related structures Pupils: Equal, round and reactive pupils present EOM: EOMs intact bilaterally Resp Effort & Inspection: normal respiratory effort Neuro General: patient oriented x3 and gait normal Cranial nerves: Yes Equal, round and reactive pupils present Psych Affect: normal affect Results AMB Hemoglobin A1c AMB Hemoglobin A1c 6.5 % Last Edit by ISAAC Tierney on 11/02/23 09:42 Assessment and Plan Assessment & Plan (1) Diabetes: Code(s): E11.9 - Type 2 diabetes mellitus without complications Plan: A1c?improved?to?6.5%.??Goal?is?less?than?7.0% Patient?does?note?that?he?is?recently?gained?some?w eight?and?encouraged?weight?loss Continue?current?diabetic?diet?and?medication?regimen Reminded?patient?he?should?have?a?diabetic?eye?exam?each?year. ?Sees??Jayesh.??Requesting?most?recent?note (2) Essential hypertension: Code(s): I10 - Essential (primary) hypertension Plan: Blood?pressure?is?controlled?on?valsartan.??Goal?is?less?than?140/90 Continue?current?medication Orders: Orders AMB Hemoglobin A1c Today E11.9 - Type 2 diabetes mellitus without complications Medications: Refilled mupirocin 2% 1 appl topical BID 10 days 15 grams 0RF lorazepam 1-2mg PO bedtime PRN; MassPat verified. Partial refill upon request. 30 days 15 tabs 0RF anxiety Coding Level of Care Code Est Pt Level 3 (05547) Diagnoses Diabetes E11.9 Essential hypertension I10
[2023-11-02 09:27] VITALS: BP 122/62; PULSE 63; O2SAT 94; BMI 31.2
== END 2023-11-02 09:48 | disposition home or self-care (01) ==
PROVIDERS: PCP Family Medicine; Visit Provider Family Medicine
DX: E11.9 Type 2 diabetes mellitus without complications (principal); I10 Essential (primary) hypertension
CPT/HCPCS: 83036; 99213

== ENCOUNTER 2024-02-04 08:19 | Outpatient (AMB) | payer OTHER, SELFPAY ==
--- NOTE | 2024-02-04 08:35 | A.OFFPC_ITS ---
Vital Signs 02/04/24 08:38 Height 6 ft 4 in Weight 249 lb 2 oz BMI 30.3 BP 139/76 Blood Pressure Location Lt brachial Position Sitting Respiration 16 Pulse 76 Pulse Source Pulse Oximeter Temp 97.9 F Temp Source Temporal Artery Scan Pulse Oximetry (%) 96 Oxygen Delivery Method Room Air Intake Visit Reasons: f/u diabetes, hypertension Intake Note: f/u DM,HTN Allergies No Known Allergies Allergy (Verified 02/04/24 08:37) Medication List - Last Reconciled 02/04/24 by Rashawn Arechiga MD albuterol sulfate 90 mcg/actuation 1 puff PO Q6H PRN 30 days clindamycin phosphate 1% 1 appl topical DAILY 30 days ergocalciferol (vitamin D2) 1,250 mcg PO QWEEK 90 days ezetimibe 10 mg PO DAILY 90 days fluticasone furoate-vilanterol 200-25 mcg/dose (Breo Ellipta) 1 ea inhalation DAILY 30 days indomethacin 50 mg PO TID 10 days lorazepam 1-2mg PO bedtime PRN; [employer] verified. Partial refill upon request. 30 days metformin 500 mg PO BIDWMEAL 90 days mupirocin 2% 1 appl topical BID 10 days prednisone 10 mg PO DAILY PRN 10 days valsartan 160 mg PO DAILY 90 days Tobacco use date assessed: 11/02/23 Dental Screening Dental Screen Date: 05/23/23 HPI f/u diabetes, hypertension HPI Details 73 y/o male presents to f/u diabetes, hy pertension. Blood pressure today 139/76. He is on valsartan 160mg daily. Prior A1c 11/02/23 6.5%. A1c today 02/04/24 is 6.4%. He is on metformin 500mg b.i.d. Notes he had a recent eye exam. Has lost some weight since last office visit in October - 256 lbs to 249 lbs. HPI Comments History of Present Illness Details Documentation assistance for Rashawn Arechiga MD, was provided by Ti Luna, Customer Service Representative Teller on 02/04/2024 at 8:52 AM NIKO. I, Dr. Arechiga, have read, observed, and verified documentation. [facility] Medical History Diverticulitis Diverticulitis large intestine Surgical History History of open reduction and internal fixation (ORIF) procedure Family History Mother Cerebral hemorrhage Father Myocardial infarction Social History (Updated 11/02/23 @ 09:32 by ISAAC Tierney) Housing: House Alcohol intake: never Patient Tobacco Use Status: Never used Tobacco e-Cigarette/Vaping Use: Never Used Second Hand Smoke Exposure: No service: No Current occupational status: retired Current occupational exposures/hazards: No Cognitive needs: No Hearing needs: No Vision needs: No Questionnaire PHQ-9 Over the last 2 weeks, how often have you been bothered by any of the following problems? 1. Little interest or pleasure in doing things: not at all 2. Feeling down, depressed, or hopeless: not at all 3. Trouble falling or staying asleep, or sleeping too much: not at all 4. Feeling tired or having little energy: not at all 5. Poor appetite or overeating: not at all 6. Feeling bad about yourself - or that you are a failure or have let yourself or your family down: not at all 7. Trouble concentrating on things, such as reading the newspaper or watching television: not at all 8. Moving or speaking so slowly that other people could have noticed. Or the opposite - being so fidgety or restless that you have been moving around a lot more than usual: not at all 9. Thoughts that you would be better off or of hurting yourself in some way: not at all Total score: 0 Source: Developed by Drs. Clarke Virgen, Krystle Kimbrough, Trenton Perea and colleagues, with an educational ciara from [employer]. Thrive Questionnaire Date Thrive assessed: 01/29/24 I am a: Patient What is your living situation today?: I have a steady place to live Within the past 12 months, did the food you bought not last and you didn't have the money to get more?: Never true Within the past 12 months, did you worry whether your food would run out before you got money to buy more?: Never true Do you have trouble paying for medicines?: No Do you have trouble getting transportation to medical appointments?: No Do you have trouble paying your heating and electricity bill?: No Do you have trouble taking care of your child, family member or friend?: No Do you have trouble with day-to-day activities such as bathing, preparing meals, shopping, managing finances, etc.?: No Are you currently unemployed and looking for a job?: No Are you interested in more education?: No Please select the resources that you would like help with: None Currently or been in a relationship where the following occur: No concerns reported THRIVE Score: 0 AUDIT C Alcohol Use Questionnaire (AUDIT-C) 1. How often do you have a drink containing alcohol?: Monthly or less 2. How many drinks containing alcohol do you have on a typical day when you are drinking?: 1 or 2 3. How often do you have six or more drinks on one occasion?: Never Total Score: 1 MONSTER-7 AMB Questionnaire MONSTER-7 Date MONSTER - 7 assessed: 05/23/23 Feeling nervous, anxious, or on edge: 0 = Not at all Not being able to stop or control worryin = Not at all Worrying too much about different things: 0 = Not at all Trouble relaxin = Not at all Being so restless that it is hard to sit still: 0 = Not at all Becoming easily annoyed or irritable: 0 = Not at all Feeling afraid as if something awful might happen: 0 = Not at all Total MONSTER-7 score (0-4 normal; 5-9 mild; 10-14 moderate; 15-21 severe): 0 Source: Developed by Drs. Clarke Virgen, Krystle Kimbrough, Trenton Perea and colleagues, with an educational ciara from [employer]. Review of Systems Const Denies chills, Denies fatigue, Denies fever(s), Denies headache(s) and Denies weakness ENT Denies dizziness and Denies headache(s) Card Denies dyspnea Resp Denies cough, Denies dyspnea, Denies wheezing and Denies other (shortness of breath) Musc Denies numbness and Denies tingling Neuro Denies dizziness, Denies headache(s), Denies numbness, Denies tingling and Denies weakness Psych Denies anxiety and Denies depression Endo Denies fatigue Aller/Immun Denies wheezing Physical exam (Primary Care) Vital Signs: Last Vital Signs Temp 97.9 F 02/04/24 08:38 Pulse 76 02/04/24 08:38 Resp 16 02/04/24 08:38 BP 139/76 02/04/24 08:38 Pulse Ox 96 02/04/24 08:38 Oxygen Delivery Method Room Air 02/04/24 08:38 BMI result Body Mass Index 30.3 Tobacco/Smoking Status: Tobacco use Status Tobacco use date assessed 11/02/23 02/04/24 08:39 Patient Tobacco Use Status Never used Tobacco 02/04/24 08:39 e-Cigarette/Vaping Use Never Used 02/04/24 08:39 PHQ-9: PHQ-9 Score PHQ-9: Total score 0 02/04/24 08:39 Thrive Assessment: Date of Thrive Assessment Date Thrive assessed 01/29/24 02/04/24 08:39 Currently or been in a relationship where the following occur: No concerns reported Const General: well developed; No acute distress Nutritional Appearance: well nourished Orientation/consciousness: patient oriented x3 [facility] Head: Yes normocephalic and Yes atraumatic Eyes General: appearance normal, both eyes and all related structures Pupils: Equal, round and reactive pupils present EOM: EOMs intact bilaterally Resp Effort & Inspection: normal respiratory effort Auscultation: clear to auscultation bilaterally Cardio Rate: regular rate Rhythm: regular rhythm Heart sounds: S1 normal heart sound present, S2 normal heart sound present, no gallops, no murmurs and no rubs Neuro General: patient oriented x3 and gait normal Cranial nerves: Yes Equal, round and reactive pupils present Psych Affect: normal affect Coding Level of Care Code Est Pt Level 4 (30660) Diagnoses Essential hypertension I10 Diabetes E11.9 Acid reflux K21.9 Assessment & Plan Assessment & Plan (1) Essential hypertension: Code(s): I10 - Essential (primary) hypertension Category: Medical Plan: Blood?pressure?is?controlled?though?at?top?of?controlled?range.??Goal?is?less?th an?140/90 Continue?valsartan?as?prescribed Continue?weight?loss?and?watch?salt/sodium?in?diet (2) Diabetes: Code(s): E11.9 - Type 2 diabetes mellitus without complications Category: Medical Plan: A1c?6.4%.??Good?control.??Goal?is?less?than?7% Continue?current?medication?regimen Continue?diabetic?diet Encouraged?further?weight?loss Patient?gets?regular?eye?exam?and?is?up-to-date (3) Acid reflux: Code(s): K21.9 - Gastro-esophageal reflux disease without esophagitis Category: Medical Plan: Patient?is?getting?sour?taste?in?his?mouth?particularly?in?the?morning Likely?acid?reflux 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
[2024-02-04 08:38] VITALS: BP 139/76; PULSE 76; RESP 16; TEMP 36.6; O2SAT 96; BMI 30.3
== END 2024-02-04 08:57 | disposition home or self-care (01) ==
LOC: HO.HMCFM 08:20
PROVIDERS: PCP Family Medicine; Visit Provider Family Medicine
DX: I10 Essential (primary) hypertension (principal); E11.9 Type 2 diabetes mellitus without complications; K21.9 Gastro-esophageal reflux disease without esophagitis

== ENCOUNTER → 2024-02-04 08:19 | Outpatient (BNVA) | payer OTHER, SELFPAY | PROVIDERS: PCP Family Medicine; Visit Provider Family Medicine | DX: I10 Essential (primary) hypertension (principal); E11.9 Type 2 diabetes mellitus without complications; K21.9 Gastro-esophageal reflux disease without esophagitis | CPT/HCPCS: 83036; 96127 ==

== ENCOUNTER 2024-06-03 08:08 | Outpatient (AMB) | payer OTHER, SELFPAY ==
--- NOTE | 2024-06-03 08:35 | A.OFFPC_ITS ---
Vital Signs 06/03/24 08:37 Height 6 ft 4 in Weight 248 lb 8 oz BMI 30.2 BP 140/68 H Blood Pressure Location Lt brachial Position Sitting Respiration 14 Pulse 61 Pulse Source Pulse Oximeter Temp 97.8 F Temp Source Oral Pulse Oximetry (%) 94 Oxygen Delivery Method Room Air Intake Visit Reasons: f/u diabetes, hypertension Intake Note: follow up dm and htn Individualized Education Plan Aide Required: No Allergies No Known Allergies Allergy (Verified 06/03/24 08:35) Medication List - Last Reconciled 06/03/24 by Rashawn Arechiga MD albuterol sulfate 90 mcg/actuation 1 puff PO Q6H PRN 30 days amlodipine-valsartan 5-160 mg 1 tab PO DAILY 90 days clindamycin phosphate 1% 1 appl topical DAILY 30 days ergocalciferol (vitamin D2) 1,250 mcg PO QWEEK 90 days ezetimibe 10 mg PO DAILY 90 days fluticasone furoate-vilanterol 200-25 mcg/dose (Breo Ellipta) 1 ea inhalation DAILY 30 days lorazepam 1-2mg PO bedtime PRN; [employer]Pat verified. Partial refill upon request. 30 days metformin 500 mg PO BIDWMEAL 90 days mupirocin 2% 1 appl topical BID 10 days Tobacco use date assessed: 11/02/23 Dental Screening Dental Screen Date: 05/23/23 HPI f/u diabetes, hypertension HPI Details 73 y/o male presents to f/u diabetes, hy pertension. Blood pressure today 140/68, 61p. He is on valsartan 160mg daily. Pt states he had a recent eye exam. A1c 6.6%. HPI Comments History of Present Illness Details Documentation assistance for Rashawn Arechiga MD, was provided by Ti Luna,? Cardiovascular Surgical Tech on 06/03/2024 at 8:55 AM EST. I, Dr. Arechiga, have read, observed, and verified documentation. ?? [facility] Medical History Diverticulitis Diverticulitis large intestine Surgical History History of open reduction and internal fixation (ORIF) procedure Family History Mother Cerebral hemorrhage Father Myocardial infarction Social History (Updated 11/02/23 @ 09:32 by ISAAC Tierney) Housing: House Alcohol intake: never Patient Tobacco Use Status: Never used Tobacco e-Cigarette/Vaping Use: Never Used Second Hand Smoke Exposure: No service: No Current occupational status: retired Current occupational exposures/hazards: No Cognitive needs: No Hearing needs: No Vision needs: No Questionnaire PHQ-9 Over the last 2 weeks, how often have you been bothered by any of the following problems? 1. Little interest or pleasure in doing things: not at all 2. Feeling down, depressed, or hopeless: not at all 3. Trouble falling or staying asleep, or sleeping too much: not at all 4. Feeling tired or having little energy: not at all 5. Poor appetite or overeating: not at all 6. Feeling bad about yourself - or that you are a failure or have let yourself or your family down: not at all 7. Trouble concentrating on things, such as reading the newspaper or watching television: not at all 8. Moving or speaking so slowly that other people could have noticed. Or the opposite - being so fidgety or restless that you have been moving around a lot more than usual: not at all 9. Thoughts that you would be better off or of hurting yourself in some way: not at all Total score: 0 Source: Developed by Drs. Clarke Virgen, Krystle Kimbrough, Trenton Perea and colleagues, with an educational ciara from [employer]. Thrive Questionnaire Date Thrive assessed: 05/28/24 I am a: Patient What is your living situation today?: I have a steady place to live Within the past 12 months, did the food you bought not last and you didn't have the money to get more?: Never true Within the past 12 months, did you worry whether your food would run out before you got money to buy more?: Never true Do you have trouble paying for medicines?: No Do you have trouble getting transportation to medical appointments?: No Do you have trouble paying your heating and electricity bill?: No Do you have trouble taking care of your child, family member or friend?: No Do you have trouble with day-to-day activities such as bathing, preparing meals, shopping, managing finances, etc.?: No Are you currently unemployed and looking for a job?: No Are you interested in more education?: No Please select the resources that you would like help with: None Currently or been in a relationship where the following occur: No concerns reported THRIVE Score: 0 AUDIT C Alcohol Use Questionnaire (AUDIT-C) 1. How often do you have a drink containing alcohol?: Monthly or less 2. How many drinks containing alcohol do you have on a typical day when you are drinking?: 1 or 2 3. How often do you have six or more drinks on one occasion?: Never Total Score: 1 MONSTER-7 AMB Questionnaire MONSTER-7 Date MONSTER - 7 assessed: 05/23/23 Feeling nervous, anxious, or on edge: 0 = Not at all Not being able to stop or control worryin = Not at all Worrying too much about different things: 0 = Not at all Trouble relaxin = Not at all Being so restless that it is hard to sit still: 0 = Not at all Becoming easily annoyed or irritable: 0 = Not at all Feeling afraid as if something awful might happen: 0 = Not at all Total MONSTER-7 score (0-4 normal; 5-9 mild; 10-14 moderate; 15-21 severe): 0 Source: Developed by Drs. Clarke Virgen, Krystle Kimbrough, Trenton Perea and colleagues, with an educational ciara from [employer]. Review of Systems Const Denies chills, Denies fatigue, Denies fever(s), Denies headache(s) and Denies weakness ENT Denies dizziness and Denies headache(s) Card Denies dyspnea Resp Denies cough, Denies dyspnea, Denies wheezing and Denies other (shortness of breath) Musc Denies numbness and Denies tingling Neuro Denies dizziness, Denies headache(s), Denies numbness, Denies tingling and Denies weakness Psych Denies anxiety and Denies depression Endo Denies fatigue Aller/Immun Denies wheezing Physical exam (Primary Care) Vital Signs: Last Vital Signs Temp 97.8 F 06/03/24 08:37 Pulse 61 06/03/24 08:37 Resp 14 06/03/24 08:37 BP 140/68 H 06/03/24 08:37 Pulse Ox 94 06/03/24 08:37 Oxygen Delivery Method Room Air 06/03/24 08:37 BMI result Body Mass Index 30.2 Tobacco/Smoking Status: Tobacco use Status Tobacco use date assessed 11/02/23 06/03/24 08:40 Patient Tobacco Use Status Never used Tobacco 06/03/24 08:40 e-Cigarette/Vaping Use Never Used 06/03/24 08:40 PHQ-9: PHQ-9 Score PHQ-9: Total score 0 06/03/24 08:53 Thrive Assessment: Date of Thrive Assessment Date Thrive assessed 05/28/24 06/03/24 08:40 Currently or been in a relationship where the following occur: No concerns reported Const General: well developed; No acute distress Nutritional Appearance: well nourished Orientation/consciousness: patient oriented x3 HENMT Head: Yes normocephalic and Yes atraumatic Eyes General: appearance normal, both eyes and all related structures Pupils: Equal, round and reactive pupils present EOM: EOMs intact bilaterally Resp Effort & Inspection: normal respiratory effort Auscultation: clear to auscultation bilaterally Cardio Rate: regular rate Rhythm: regular rhythm Heart sounds: S1 normal heart sound present, S2 normal heart sound present, no gallops, no murmurs and no rubs Neuro General: patient oriented x3 and gait normal Cranial nerves: Yes Equal, round and reactive pupils present Psych Affect: normal affect Results AMB Hemoglobin A1c AMB Hemoglobin A1c 6.6 % Last Edit by Rohan Cox CMA on 06/03/24 08:43 Results Reviewed Results Reviewed: Laboratory Last Values Hgb A1c (Clinic) 6.6 % (4.0-6.0) H 06/03/24 08:42 Coding Level of Care Code Est Pt Level 3 (64407) Diagnoses Essential hypertension I10 Diabetes E11.9 Assessment & Plan Assessment & Plan (1) Essential hypertension: Code(s): I10 - Essential (primary) hypertension Category: Medical Plan: Blood?pressure?is?a?little?elevated?and?was?at?top?of?controlled?range?at?last?v isit. Will?change?valsartan?160?mg?daily?to valsartan-am lodipine?160/5?mg?daily?combo?pill. Work?at?diet?low?in?salt/sodium,?Work?at?exercise?and?weight?control (2) Diabetes: Code(s): E11.9 - Type 2 diabetes mellitus without complications Category: Medical Plan: A1c?6.6%.??Controlled.??Goal?is?less?than?7% Continue?working?at?a?diet?low?in?sugars?and?starches Continue?metformin?as?prescribed Patient?said?he?had?an?eye?exam?at?[facility]?in?[place]. Up-to-date Orders: Orders AMB Hemoglobin A1c Today E11.9 - Type 2 diabetes mellitus without complications Medications: New amlodipine-valsartan 5-160 mg 1 tab PO DAILY 90 tabs 3RF 90 days Discontinued valsartan Discontinued Reason: Doctor's Order 160 mg PO DAILY 90 days 90 tabs 3RF
[2024-06-03 08:37] VITALS: BP 140/68; PULSE 61; RESP 14; TEMP 36.6; O2SAT 94; BMI 30.2
== END 2024-06-03 08:59 | disposition home or self-care (01) ==
PROVIDERS: PCP Family Medicine; Visit Provider Family Medicine
DX: I10 Essential (primary) hypertension (principal); E11.9 Type 2 diabetes mellitus without complications

== ENCOUNTER → 2024-06-03 08:08 | Outpatient (BNVA) | payer OTHER, SELFPAY | PROVIDERS: PCP Family Medicine; Visit Provider Family Medicine | DX: I10 Essential (primary) hypertension (principal); E11.9 Type 2 diabetes mellitus without complications; Z79.84 Long term (current) use of oral hypoglycemic drugs; Z79.899 Other long term (current) drug therapy | CPT/HCPCS: 83036; 96127 ==

== ENCOUNTER 2024-09-23 10:23 | Outpatient (AMB) | payer OTHER, SELFPAY ==
--- NOTE | 2024-09-23 10:33 | MHC.PC.OV ---
Vital Signs 09/23/24 10:35 Height 6 ft 4 in Weight 249 lb BMI 30.3 BP 120/60 Blood Pressure Location Lt brachial Position Sitting Respiration 16 Pulse 63 Pulse Source Pulse Oximeter Temp 98.2 F Temp Source Oral Pulse Oximetry (%) 94 Oxygen Delivery Method Room Air Intake Visit Reasons: f/u HTN, DM Intake Note: patient is here to follow up on htn and dm Accounting Technician Required: No Allergies No Known Allergies Allergy (Verified 09/23/24 10:34) Medication List - Last Reconciled 09/23/24 by Rashawn Arechiga MD albuterol sulfate 90 mcg/actuation 1 puff PO Q6H PRN 30 days amlodipine-valsartan 5-160 mg 1 tab PO DAILY 90 days clindamycin phosphate 1% 1 appl topical DAILY 30 days ergocalciferol (vitamin D2) 1,250 mcg PO QWEEK 90 days ezetimibe 10 mg PO DAILY 90 days fluticasone furoate-vilanterol 200-25 mcg/dose (Breo Ellipta) 1 ea inhalation DAILY 30 days lorazepam 1-2mg PO bedtime PRN; [employer]Pat verified. Partial refill upon request. 30 days metformin 500 mg PO BIDWMEAL 90 days mupirocin 2% 1 appl topical BID 10 days prednisone 10 mg PO DAILY 10 days Tobacco use date assessed: 11/02/23 Dental Screening Dental Screen Date: 05/23/23 HPI f/u HTN, DM HPI Details 74 y/o male presents to f.u HTN, DM. Blood pressure today 120/60, 63p. He is on metformin 500mg b.i.d. [facility] Medical History Diverticulitis Diverticulitis large intestine Surgical History History of open reduction and internal fixation (ORIF) procedure Family History Mother Cerebral hemorrhage Father Myocardial infarction Social History (Updated 11/02/23 @ 09:32 by ISAAC Tierney) Housing: House Alcohol intake: never Patient Tobacco Use Status: Never used Tobacco e-Cigarette/Vaping Use: Never Used Second Hand Smoke Exposure: No service: No Current occupational status: retired Current occupational exposures/hazards: No Cognitive needs: No Hearing needs: No Vision needs: No Questionnaire Thrive Questionnaire Date Thrive assessed: 05/28/24 I am a: Patient What is your living situation today?: I have a steady place to live Within the past 12 months, did the food you bought not last and you didn't have the money to get more?: Never true Within the past 12 months, did you worry whether your food would run out before you got money to buy more?: Never true Do you have trouble paying for medicines?: No Do you have trouble getting transportation to medical appointments?: No Do you have trouble paying your heating and electricity bill?: No Do you have trouble taking care of your child, family member or friend?: No Do you have trouble with day-to-day activities such as bathing, preparing meals, shopping, managing finances, etc.?: No Are you currently unemployed and looking for a job?: No Are you interested in more education?: No Please select the resources that you would like help with: None Currently or been in a relationship where the following occur: No concerns reported THRIVE Score: 0 MONSTER-7 AMB Questionnaire MONSTER-7 Date MONSTER - 7 assessed: 05/23/23 Source: Developed by Drs. Clarke Virgen, Krystle Kimbrough, Trenton Perea and colleagues, with an educational ciara from [employer]. Physical exam (Primary Care) Vital Signs: Last Vital Signs Temp 98.2 F 09/23/24 10:35 Pulse 63 09/23/24 10:35 Resp 16 09/23/24 10:35 BP 120/60 09/23/24 10:35 Pulse Ox 94 09/23/24 10:35 Oxygen Delivery Method Room Air 09/23/24 10:35 BMI result Body Mass Index 30.3 Tobacco/Smoking Status: Tobacco use Status Tobacco use date assessed 11/02/23 09/23/24 10:39 Patient Tobacco Use Status Never used Tobacco 09/23/24 10:39 e-Cigarette/Vaping Use Never Used 09/23/24 10:39 Thrive Assessment: Date of Thrive Assessment Date Thrive assessed 05/28/24 09/23/24 10:39 Currently or been in a relationship where the following occur: No concerns reported Coding Level of Care Code Est Pt Level 3 (48168) Diagnoses Diabetes E11.9 Essential hypertension I10 Assessment & Plan Assessment & Plan (1) Diabetes: Code(s): E11.9 - Type 2 diabetes mellitus without complications Category: Medical Plan: A1c?climbed?from?6.6%?to?6.9%. Still?at?goal?of?less?than?7.0% As?increased?however?and?I?encouraged?diet?lower?in?sugars?and?starches.??No?medication?changes?today. (2) Essential hypertension: Code(s): I10 - Essential (primary) hypertension Category: Medical Plan: Blood?pressure?now?well?controlled.??Goal?is?less?than?140/90 Continue?current?medications Orders: Orders Comprehensive [place]. Panel Fast Today Z00.00 - Encounter for general adult medical examination without abnormal findings Complete Blood Count Auto Diff Today Z00.00 - Encounter for general adult medical examination without abnormal findings Lipid Panel Today Z00.00 - Encounter for general adult medical examination without abnormal findings Prostate Specific Antigen Scr Today Z12.5 - Encounter for screening for malignant neoplasm of prostate Microalbumin, Random (w Creat) Today I10 - Essential (primary) hypertension TSH reflex Free T4 Today Z00.00 - Encounter for general adult medical examination without abnormal findings UA CC w/rflx Micro + Cult Today Z00.00 - Encounter for general adult medical examination without abnormal findings Medications: Refilled prednisone 10 mg PO DAILY 10 tabs 0RF 10 days
[2024-09-23 10:35] VITALS: BP 120/60; PULSE 63; RESP 16; TEMP 36.8; O2SAT 94; BMI 30.3
--- OUTSIDE RECORDS SUMMARY | 2024-09-23 11:33 | XMS_ITS | Clinical Summary ---
Author Organization [facility] it Address [address] [place] [address] Care Team Providers Care Brush Finisher Name Role Phone Unavailable Primary Care Provider Unavailabl e Social History Tobacco Use Types Packs/Day Years Used Date Smoking Tobacco: Never Assessed Sex and Gender Information Value Date Recorded Sex Assigned at Not on file Legal Sex Male 9:34 PM EST Gender Identity Not on file Sexual Orientation Not on file Plan of Treatment Health Maintenance Due Date Last Done Comments DTaP,Tdap,and Td Vaccines (1 - Tdap) 1969 Zoster Vaccines (1 of 2) 2000 Pneumococcal Vaccine: 50+ Ye ars (2 of 2 - PPSV23) 04/18/2019 02/21/2019 Abdominal Aortic Aneurysm (A AA) Screen 05/08/2019 Cholesterol Screening (Lipid Panel) 05/08/2019 Colorectal Cancer Screening: Colonoscopy 05/08/2019 Depression Screening 05/08/2019 Falls Risk Assessment 05/08/2019 Hepatitis C Screening 05/08/2019 Social Influencers of Health Screening 05/08/2019 COVID-19 Vaccine ( - 2023-2 5 season) 2023 Influenza Vaccine (Season Ended) 2024 12/14/19 20 RSV Immunization Adult Patie nts (1 - 1-dose 75+ series) 2025 HIB Vaccines Aged Out No longer eligi ble based on patient's age to complete this topic HPV Vaccines Aged Out No longer eligi ble based on patient's age to complete this topic Hepatitis A Vaccines Aged Out No long er eligible based on patient's age to complete this topic Hepatitis B Vaccines Aged Out No long er eligible based on patient's age to complete this topic IPV Vaccines Aged Out No longer eligi ble based on patient's age to complete this topic MMR Vaccines Aged Out No longer eligi ble based on patient's age to complete this topic Meningococcal ACWY Vaccine Aged Out N o longer eligible based on patient's age to complete this topic Meningococcal B Vaccine Aged Out No l onger eligible based on patient's age to complete this topic RSV Immunization Patients Un sonya 20 months Aged Out No longer eligible b ased on patient's age to complete this topic Varicella Vaccines Aged Out No longer eligible based on patient's age to complete this topic
== END 2024-09-23 14:32 | disposition home or self-care (01) ==
LOC: HO.HMCFM 10:24
PROVIDERS: PCP Family Medicine; Visit Provider Family Medicine
DX: E11.9 Type 2 diabetes mellitus without complications (principal); I10 Essential (primary) hypertension

== ENCOUNTER → 2024-09-23 10:23 | Outpatient (BNVA) | payer OTHER, SELFPAY | PROVIDERS: PCP Family Medicine; Visit Provider Family Medicine | DX: Z13.89 Encounter for screening for other disorder (principal) ==

== ENCOUNTER 2024-12-02 07:08 | Outpatient (REF) | payer OTHER, SELFPAY ==
--- OUTSIDE RECORDS SUMMARY | 2024-12-02 07:10 | XMS_ITS | Clinical Summary ---
Author Organization [facility] it Address [address] [place] [address] Care Team Providers Care Ict Sales Representative Name Role Phone Unavailable Primary Care Provider [...] Panel) 05/08/2019 Colorectal Cancer Screening: Colonoscopy 05/08/2019 Falls Risk Assessment 05/08/2019 Hepatitis C Screening 05/08/2019 Social Influencers of Health Screening 05/08/2019 COVID-19 Vaccine (1 - 2023-2 5 season) 2023 Depression Screening 04/02/2024 Influenza Vaccine (#1) 2024 12/14/2019 RSV Immunization Adult Patie nts (1 - [...]
--- OUTSIDE RECORDS SUMMARY | 2024-12-02 07:10 | XMS_ITS ---
Author Name [facility] Organization Unknown Care Team Organization Name Specialty Phone Email Start Date End Da te [facility] NULL Primary Care 02/07/2022 11/19/2023
[2024-12-02 07:24] LABS: MANUAL DIFF FLAG NO
[2024-12-02 07:40] LABS: Hematocrit 45.3 % (42.0-52.0); Hemoglobin 15.9 g/dl (14.0-18.0); Imm Gran Abs Auto 0.01 X10*3/uL (0.00-0.03); Imm Gran Pct Auto 0.2 % (0.0-0.4); Lymphocytes Absolute Auto 1.8 X10*3/uL (1.2-4.9); Mean Corpuscular HGB Conc 35.1 g/dl (31.0-36.0); Mean Corpuscular Hemoglobin 32.5 pg (27.0-33.0); Mean Corpuscular Volume 92.6 fL (80.0-98.0); NRBC Abs Auto 0.000 X10*3/uL (0.0-0.012); NRBC Pct Auto 0.0 /100WBC (0.0-0.2); Platelet Count 191 X10*3/uL (160-400); Red Blood Count 4.89 X10*6/uL (4.60-5.80); White Blood Count 5.2 X10*3/uL (4.8-10.8)
[2024-12-02 08:16] LABS: Alanine Aminotransferase 30 U/L (0-40); Albumin Level 4.0 g/dL (3.5-5.0); Alkaline Phosphatase 49 U/L (39-117); Anion Gap 13 (12-20); Aspartate Amino Transferase 29 U/L (5-37); Blood Urea Nitrogen 17 mg/dL (9-16); Calcium 9.0 mg/dL (8.4-10.2); Carbon Dioxide 25 mmol/L (22-29); Chloride 108 mmol/L (96-108); Cholesterol 162 mg/dL (<200); Estimated Glomerular Filt Rate > 60; HDL Cholesterol 44 mg/dL (>40); Potassium 4.7 mmol/L (3.3-5.1); Sodium 141 mmol/L (135-145); Total Protein 6.5 g/dL (6.5-8.0); Triglycerides 98 mg/dL (<150)
[2024-12-02 08:36] LABS: Appearance Urine Clear; Glucose Urine UA Negative (Negative); PH 6.0 (5.0-9.0); Specific Gravity - Urine 1.025 (1.005-1.025)
[2024-12-02 09:01] LABS: Microalbum/Creatinine Ratio Ur 30.3 ug/mg cr (<30)
== END 2024-12-02 07:09 | disposition home or self-care (01) ==
LOC: HO.LAB 07:08
PROVIDERS: PCP Family Medicine; Visit Provider Family Medicine
DX: Z00.00 Encounter for general adult medical examination without abnormal findings (principal); Z12.5 Encounter for screening for malignant neoplasm of prostate; I10 Essential (primary) hypertension
CPT/HCPCS: 36415; 80053; 80061; 81003; 82043; 82570; 84153; 84443; 85025

== ENCOUNTER 2024-12-04 08:45 | Outpatient (AMB) | payer OTHER, SELFPAY ==
--- NOTE | 2024-12-04 08:50 | A.OFFPC_ITS ---
Vital Signs 12/04/24 08:56 12/04/24 09:23 Height 6 ft 4 in Weight 248 lb 8 oz BMI 30.2 BP 154/74 H 141/70 H Blood Pressure Location Lt brachial Lt brachial Position Sitting Sitting Respiration 16 Pulse 58 Pulse Source Pulse Oximeter Temp 97.6 F Temp Source Oral Pulse Oximetry (%) 97 Oxygen Delivery Method Room Air Intake Visit Reasons: CPE with f/u labs and health maint. 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 Partial refill upon request. 30 days metformin 500 mg PO BIDWMEAL 90 days mupirocin 2% 1 appl topical BID 10 days prednisone 10 mg PO DAILY 10 days Tobacco use date assessed: 12/04/24 Fall risk assessment: No Falls in past year Last assessed Fall Risk: 12/04/24 Dental Screening Dental Screen Date: 12/04/24 Did you have a dental visit in the last 12 months?: Yes Did you have a dental problem in the last 6 months where you did not have access to dental care?: No Was dental information given to patient?: Patient has dentist HPI CPE with f/u labs and health maint. HPI Details 74 y/o male presents for a CPE with f/u labs and health maint. Last A1c 6.9%. A1c today improved to 6.5%. Blood pressure today 154/74, 58p. He is on amlodipine-valsartan 5-160mg daily. Pt notes he had been putting a lot of salt to his meals. Keeps himself active doing yard work. [facility] Medical History Diverticulitis Diverticulitis large intestine Surgical History History of open reduction and internal fixation (ORIF) procedure Family History Mother Cerebral hemorrhage Father Myocardial infarction Social History Housing: House Alcohol intake: never Patient Tobacco Use Status: Never used Tobacco e-Cigarette/Vaping Use: Never Used Second Hand Smoke Exposure: No service: No Current occupational status: retired Current occupational exposures/hazards: No Cognitive needs: No Hearing needs: No Vision needs: No Questionnaire PHQ-9 Over the last 2 weeks, how often have you been bothered by any of the following problems? 1. Little interest or pleasure in doing things: not at all 2. Feeling down, depressed, or hopeless: not at all 3. Trouble falling or staying asleep, or sleeping too much: not at all 4. Feeling tired or having little energy: not at all 5. Poor appetite or overeating: not at all 6. Feeling bad about yourself - or that you are a failure or have let yourself or your family down: not at all 7. Trouble concentrating on things, such as reading the newspaper or watching television: not at all 8. Moving or speaking so slowly that other people could have noticed. Or the op posite - being so fidgety or restless that you have been moving around a lot more than usual: not at all 9. Thoughts that you would be better off or of hurting yourself in some way: not at all Total score: 0 Depression Screening Interpretation: Negative Depression Screening Done: Yes 83725 - PHQ-9 Billing: Yes Source: Developed by Drs. Clarke Virgen, Krystle Kimbrough, Trenton Perea and colleagues, with an educational ciara from [employer]. Thrive Questionnaire Date Thrive assessed: 12/04/24 I am a: Patient What is your living situation today?: I have a steady place to live Within the past 12 months, did the food you bought not last and you didn't have the money to get more?: Never true Within the past 12 months, did you worry whether your food would run out before you got money to buy more?: Never true Do you have trouble paying for medicines?: No Do you have trouble getting transportation to medical appointments?: No Do you have trouble paying your heating and electricity bill?: No Do you have trouble taking care of your child, family member or friend?: No Do you have trouble with day-to-day activities such as bathing, preparing meals, shopping, managing finances, etc.?: No Are you currently unemployed and looking for a job?: No Are you interested in more education?: No Please select the resources that you would like help with: None Currently or been in a relationship where the following occur: No concerns reported THRIVE Score: 0 AUDIT C Alcohol Use Questionnaire (AUDIT-C) 1. How often do you have a drink containing alcohol?: Monthly or less 2. How many drinks containing alcohol do you have on a typical day when you are drinking?: 1 or 2 3. How often do you have six or more drinks on one occasion?: Never Total Score: 1 Score Reviewed/Action Taken: Yes MONSTER-7 AMB Questionnaire MONSTER-7 Date MONSTER - 7 assessed: 05/23/23 Feeling nervous, anxious, or on edge: 0 = Not at all Not being able to stop or control worryin = Not at all Worrying too much about different things: 0 = Not at all Trouble relaxin = Not at all Being so restless that it is hard to sit still: 0 = Not at all Becoming easily annoyed or irritable: 0 = Not at all Feeling afraid as if something awful might happen: 0 = Not at all Total MONSTER-7 score (0-4 normal; 5-9 mild; 10-14 moderate; 15-21 severe): 0 Source: Developed by Drs. Clarke Virgen, Krystle Kimbrough, Trenton Perea and colleagues, with an educational ciara from [employer]. MONSTER-7 Assessment Billing MONSTER-7 Assessment Tool: MONSTER-7 Assessment 42291 ACT Questionnaire In the past 4 weeks, how much of the time did your asthma keep you from getting as much done at work, school or at home?: None of the time During the past 4 weeks, how often have you had shortness of breath?: Not at all During the past 4 weeks, how often did your asthma symptoms wake you up at night or earlier than usual in the morning?: Not at all During the past 4 weeks, how often have you had to use your rescue inhaler or nebulizer medication?: Not at all How would you rate your asthma control during the past 4 weeks?: Completely controlled Score: 25 Review of Systems Const Denies chills, Denies fatigue, Denies fever(s), Denies headache(s) and Denies weakness Eyes Denies change in vision ENT Denies dizziness, Denies headache(s), Denies hearing loss, Denies nasal congestion, Denies sinus pain, Denies sinus pressure and Denies sore throat Card Denies chest pain, Denies lightheadedness, Denies dyspnea and Denies other (palpitations) Resp Denies cough, Denies dyspnea and Denies wheezing GI Denies abdominal pain, Denies melena, Denies hematochezia, Denies change in bowel habits, Denies dyspepsia and Denies nausea Denies hematuria and Denies dysuria Musc Denies abnormal gait, Denies myalgias, Denies arthralgias, Denies numbness and Denies tingling Skin/Breast Denies rash, Denies unusual bruising and Denies wounds Neuro Denies abnormal gait, Denies dizziness, Denies headache(s), Denies memory loss, Denies numbness, Denies Sensory deficit (Neuro), Denies tingling and Denies weakness Psych Denies anxiety, Denies depression and Denies memory loss Endo Denies cold intolerance, Denies fatigue, Denies heat intolerance, Denies polydipsia and Denies polyuria Man/Lymph Denies easy bleeding and Denies easy bruising Aller/Immun Denies wheezing Physical exam (Primary Care) Vital Signs: Last Vital Signs Temp 97.6 F 12/04/24 08:56 Pulse 58 12/04/24 08:56 Resp 16 12/04/24 08:56 BP 154/74 H 12/04/24 08:56 Pulse Ox 97 12/04/24 08:56 Oxygen Delivery Method Room Air 12/04/24 08:56 BMI result Body Mass Index 30.2 Tobacco/Smoking Status: Tobacco use Status Tobacco use date assessed 12/04/24 12/04/24 08:59 Patient Tobacco Use Status Never used Tobacco 12/04/24 08:59 e-Cigarette/Vaping Use Never Used 12/04/24 08:59 PHQ-9: PHQ-9 Score PHQ-9: Total score 0 12/04/24 09:20 Depression Screening Interpretation: Negative Thrive Assessment: Date of Thrive Assessment Date Thrive assessed 12/04/24 12/04/24 08:59 Currently or been in a relationship where the following occur: No concerns reported Const General: no acute distress, well developed, alert and awake Nutritional Appearance: well nourished Orientation/consciousness: patient oriented x3 HENMT Head: Yes normocephalic and Yes atraumatic Ears: hearing grossly normal bilaterally and TM's normal bilaterally General nose exam: Normal external nose present and Normal nares present Mouth: Normal oral and palatal mucosa present and moist mucous membranes Teeth and gingiva: dentition normal Throat: Yes posterior oropharynx normal Eyes General: appearance normal, both eyes and all related structures Pupils: Equal, round and reactive pupils present and Pupil accommodation reflex normal EOM: EOMs intact bilaterally Neck Neck: Yes normal visual inspection, Yes no lymphadenopathy and Yes trachea midline Thyroid: Thyroid normal Carotids: no bruits Lymphatic: no lymphadenopathy noted Chest Chest palpation & inspection: normal inspection of the chest Resp Effort & Inspection: normal respiratory effort Auscultation: clear to auscultation bilaterally Cardio Rate: regular rate Rhythm: regular rhythm Heart sounds: S1 normal heart sound present, S2 normal heart sound present, no gallops, no murmurs and no rubs Bruits: no abdominal aortic bruits and no carotid bruits GI Palpation (GI): No Abdominal aortic bruit present, Soft to palpation, nontender, No hepatosplenomegaly present and No Rebound tenderness present Auscultation: normal bowel sounds General: Yes no CVA tenderness Back/Spine/Pelvis Back: no CVA tenderness Cervical Spine: cervical ROM normal and No Cervical spine tenderness Thoracic/Lumbar Spine: thoraco-lumbar ROM normal, No pain with thoraco-lumbar ROM, No thoracic spinal tenderness and No lumbar spinal tenderness Skin Lesions: no lesions Rashes: no rashes Trauma: no lacerations or abrasions Wounds: no wounds Nails: normal Neuro General: patient oriented x3 Cranial nerves: Yes Equal, round and reactive pupils present Cognition (Neuro): normal cognition Gait exam (Neuro): Normal gait present Motor exam (neuro): 5/5 motor strength present throughout Sensory Exam: No Sensory deficit (Neuro) Deep tendon reflexes (DTR's): Right patellar reflex intensity grade: 2+ and Left patellar reflex intensity grade: 2+ Extrem General: Yes normal to inspection and No edema Psych Appearance: grossly normal Affect: normal affect Attitude: cooperative Thought process: Normal thought process present Coding Level of Care Code Est Pt Level 3 (92107) Est Pt Prev Care >65y(34655) Diagnoses Adult general medical exam Z00.00 Essential hypertension I10 Diabetes E11.9 Screening for prostate cancer Z12.5 Screening for colon cancer Z12.11 Additional Codes MONSTER-7 Assessment Billing - MONSTER-7 Assessment Tool: MONSTER-7 Assessment 41637 ([id number]) PHQ-9 - 67945 - PHQ-9 Billing: Yes ([id number]) Assessment & Plan Assessment & Plan (1) Adult general medical exam: Code(s): Z00.00 - Encounter for general adult medical examination without abnormal findings Category: Medical Plan: 74-year-old man presents for complete physical exam Encouraged healthy diet with active lifestyle and plenty of exercise (2) Essential hypertension: Code(s): I10 - Essential (primary) hypertension Category: Medical Plan: Blood pressure is elevated though does improve somewhat with relaxation. Goal is less than 140/90 He notes that he has been adding salt to much of his food. Encouraged him to reduce salt/sodium in his diet Encouraged exercise No medication changes made today. We discussed that if his blood pressure is still high at subsequent visits we will likely adjust his medication. (3) Diabetes: Code(s): E11.9 - Type 2 diabetes mellitus without complications Category: Medical Plan: A1c had risen at last visit. No medication changes were made Today A1c is improved at 6.5%. Goal is less than 7.0% Continue working on a diet low in sugars and starches Continue current medication (4) Screening for prostate cancer: Code(s): Z12.5 - Encounter for screening for malignant neoplasm of prostate Category: Medical Plan: PSA is within normal range Will continue annual screening (5) Screening for colon cancer: Code(s): Z12.11 - Encounter for screening for malignant neoplasm of colon Category: Medical Plan: Followed by Dr. Unger at [facility] Follow-up as recommended Medications: Refilled prednisone 10 mg PO DAILY 10 tabs 0RF 10 days lorazepam 1-2mg PO bedtime PRN; [employer] verified. Partial refill upon request. 15 tabs 0RF anxiety 30 days
[2024-12-04 08:56] VITALS: BP 154/74; PULSE 58; RESP 16; TEMP 36.4; O2SAT 97; BMI 30.2
--- OUTSIDE RECORDS SUMMARY | 2024-12-04 09:16 | XMS_ITS | Clinical Summary ---
Author Organization [facility] it Address [address] [place] [address] Care Team Providers Care Software Design Analyst Name Role Phone Unavailable Primary Care Provider [...] 05/08/2019 Social Influencers of Health Screening 05/08/2019 Depression Screening 04/02/2024 COVID-19 Vaccine ( - 2023-2 5 season) 2024 Influenza Vaccine (#1) 2024 12/14/2019 RSV Immunization [...]
[2024-12-04 09:23] VITALS: BP 141/70
== END 2024-12-04 09:31 | disposition home or self-care (01) ==
LOC: HO.HMCFM 08:46
PROVIDERS: PCP Family Medicine; Visit Provider Family Medicine
DX: Z00.00 Encounter for general adult medical examination without abnormal findings (principal); I10 Essential (primary) hypertension; E11.9 Type 2 diabetes mellitus without complications; Z12.5 Encounter for screening for malignant neoplasm of prostate; Z12.11 Encounter for screening for malignant neoplasm of colon

== ENCOUNTER → 2024-12-04 08:45 | Outpatient (BNVA) | payer OTHER, SELFPAY | PROVIDERS: PCP Family Medicine; Visit Provider Family Medicine | DX: Z00.00 Encounter for general adult medical examination without abnormal findings (principal); E11.9 Type 2 diabetes mellitus without complications; I10 Essential (primary) hypertension | CPT/HCPCS: 83036; 96127 ==

== ENCOUNTER 2025-03-12 08:16 | Outpatient (AMB) | payer OTHER, SELFPAY ==
--- NOTE | 2025-03-12 08:21 | MHC.PC.OV ---
Vital Signs 03/12/25 08:27 Height 6 ft 4 in Weight 249 lb 8 oz BMI 30.4 BP 132/60 Blood Pressure Location Rt brachial Position Sitting Respiration 16 Pulse 71 Pulse Source Pulse Oximeter Temp 97.7 F Temp Source Oral Pulse Oximetry (%) 97 Oxygen Delivery Method Room Air Intake Visit Reasons: f/u DM, HTN Intake Note: Patient present for dm and hypertension. Accompanied by: Self / Same As Patient Allergies No Known Allergies Allergy (Verified 03/12/25 08:26) Medication List - Last Reconciled 03/12/25 by Rashawn Arechiga MD albuterol sulfate 90 mcg/actuation 1 puff PO Q6H PRN 30 days amlodipine-valsartan 5-160 mg 1 tab PO DAILY 90 days clindamycin phosphate 1% 1 appl topical DAILY 30 days ergocalciferol (vitamin D2) 1,250 mcg PO QWEEK 90 days ezetimibe 10 mg PO DAILY 90 days fluticasone furoate-vilanterol 200-25 mcg/dose (Breo Ellipta) 1 ea inhalation DAILY 30 days lorazepam 1-2mg PO bedtime PRN; [facility] verified. Partial refill upon request. 30 days metformin 500 mg PO BIDWMEAL 90 days mupirocin 2% 1 appl topical BID 10 days prednisone 10 mg PO DAILY 10 days Tobacco use date assessed: 12/04/24 Fall risk assessment: No Falls in past year Last assessed Fall Risk: 03/12/25 Dental Screening Dental Screen Date: 12/04/24 HPI f/u DM, HTN HPI Details 74 y/o male presents to f/u diabetes, HTN. A1c today 03/12/25 6.6%. He is on metformin 500mg b.i.d. Blood pressure today 132/60, 71p. He is on amlodipine-valsartan 5-160mg daily. Pt notes recent viral illness. Has been keeping himself active. HPI Comments History of Present Illness Details Documentation assistance for Rashawn Arechiga MD, was provided by Ti Luna, [employer] on 03/12/2025 at 8:52 AM EST. I, Dr. Arechiga, have read, observed, and verified documentation. [facility] Medical History Diverticulitis Diverticulitis large intestine Surgical History History of open reduction and internal fixation (ORIF) procedure Family History Mother Cerebral hemorrhage Father Myocardial infarction Social History (Updated 03/12/25 @ 08:27 by Jose Maria Salas CMA) Housing: House Alcohol intake: never Patient Tobacco Use Status: Never used Tobacco e-Cigarette/Vaping Use: Never Used Second Hand Smoke Exposure: No Use of substances other than those prescribed or required for medical reasons: No service: No Current occupational status: retired Current occupational exposures/hazards: No Cognitive needs: No Hearing needs: No Vision needs: No Questionnaire PHQ-9 Over the last 2 weeks, how often have you been bothered by any of the following problems? 1. Little interest or pleasure in doing things: not at all 2. Feeling down, depressed, or hopeless: not at all 3. Trouble falling or staying asleep, or sleeping too much: not at all 4. Feeling tired or having little energy: not at all 5. Poor appetite or overeating: not at all 6. Feeling bad about yourself - or that you are a failure or have let yourself or your family down: not at all 7. Trouble concentrating on things, such as reading the newspaper or watching television: not at all 8. Moving or speaking so slowly that other people could have noticed. Or the opposite - being so fidgety or restless that you have been moving around a lot more than usual: not at all 9. Thoughts that you would be better off or of hurting yourself in some way: not at all Total score: 0 Depression Screening Interpretation: Negative Depression Screening Done: Yes 11129 - PHQ-9 Billing: Yes Source: Developed by Drs. Clarke Virgen, Krystle Kimbrough, Trenton Perea and colleagues, with an educational ciara from [employer]. Thrive Questionnaire Date Thrive assessed: 05/28/24 I am a: Patient What is your living situation today?: I have a steady place to live Within the past 12 months, did the food you bought not last and you didn't have the money to get more?: Never true Within the past 12 months, did you worry whether your food would run out before you got money to buy more?: Never true Do you have trouble paying for medicines?: No Do you have trouble getting transportation to medical appointments?: No Do you have trouble paying your heating and electricity bill?: No Do you have trouble taking care of your child, family member or friend?: No Do you have trouble with day-to-day activities such as bathing, preparing meals, shopping, managing finances, etc.?: No Are you currently unemployed and looking for a job?: No Are you interested in more education?: No Please select the resources that you would like help with: None Currently or been in a relationship where the following occur: No concerns reported THRIVE Score: 0 AUDIT C Alcohol Use Questionnaire (AUDIT-C) 1. How often do you have a drink containing alcohol?: Monthly or less 2. How many drinks containing alcohol do you have on a typical day when you are drinking?: 1 or 2 3. How often do you have six or more drinks on one occasion?: Never Total Score: 1 Score Reviewed/Action Taken: Yes MONSTER-7 AMB Questionnaire MONSTER-7 Date MONSTER - 7 assessed: 05/23/23 Feeling nervous, anxious, or on edge: 0 = Not at all Not being able to stop or control worryin = Not at all Worrying too much about different things: 0 = Not at all Trouble relaxin = Not at all Being so restless that it is hard to sit still: 0 = Not at all Becoming easily annoyed or irritable: 0 = Not at all Feeling afraid as if something awful might happen: 0 = Not at all Total MONSTER-7 score (0-4 normal; 5-9 mild; 10-14 moderate; 15-21 severe): 0 Source: Developed by Drs. Clarke Virgen, Krystle Kimbrough, Trenton Perea and colleagues, with an educational ciara from [employer]. MONSTER-7 Assessment Billing MONSTER-7 Assessment Tool: MONSTER-7 Assessment 61809 Review of Systems Const Denies chills, Denies fatigue, Denies fever(s), Denies headache(s) and Denies weakness ENT Denies dizziness and Denies headache(s) Card Denies dyspnea Resp Denies cough, Denies dyspnea, Denies wheezing and Denies other (shortness of breath) Musc Denies numbness and Denies tingling Neuro Denies dizziness, Denies headache(s), Denies numbness, Denies tingling and Denies weakness Psych Denies anxiety and Denies depression Endo Denies fatigue Aller/Immun Denies wheezing Physical exam (Primary Care) Vital Signs: Last Vital Signs Temp 97.7 F 03/12/25 08:27 Pulse 71 03/12/25 08:27 Resp 16 03/12/25 08:27 BP 132/60 03/12/25 08:27 Pulse Ox 97 03/12/25 08:27 Oxygen Delivery Method Room Air 03/12/25 08:27 BMI result Body Mass Index 30.4 Tobacco/Smoking Status: Tobacco use Status Tobacco use date assessed 12/04/24 03/12/25 08:21 Patient Tobacco Use Status Never used Tobacco 03/12/25 08:27 e-Cigarette/Vaping Use Never Used 03/12/25 08:27 PHQ-9: PHQ-9 Score PHQ-9: Total score 0 03/12/25 08:51 Depression Screening Interpretation: Negative Thrive Assessment: Date of Thrive Assessment Date Thrive assessed 05/28/24 03/12/25 08:21 Currently or been in a relationship where the following occur: No concerns reported Const General: well developed; No acute distress Nutritional Appearance: well nourished Orientation/consciousness: patient oriented x3 HENMT Head: Yes normocephalic and Yes atraumatic Eyes General: appearance normal, both eyes and all related structures Pupils: Equal, round and reactive pupils present EOM: EOMs intact bilaterally Resp Effort & Inspection: normal respiratory effort Neuro General: patient oriented x3 and gait normal Cranial nerves: Yes Equal, round and reactive pupils present Psych Affect: normal affect Results AMB Hemoglobin A1c AMB Hemoglobin A1c 6.6 % Last Edit by Jose Maria Salas CMA on 03/12/25 08:49 Results Reviewed Results Reviewed: Laboratory Last Values Hgb A1c (Clinic) 6.6 % (4.0-6.0) H 03/12/25 08:45 Coding Level of Care Code Est Pt Level 4 (03666) Diagnoses Essential hypertension I10 Diabetes E11.9 Viral illness B34.9 Additional Codes MONSTER-7 Assessment Billing - MONSTER-7 Assessment Tool: MONSTER-7 Assessment 26331 ([id number]) PHQ-9 - 68382 - PHQ-9 Billing: Yes ([id number]) Assessment & Plan Assessment & Plan (1) Essential hypertension: Code(s): I10 - Essential (primary) hypertension Category: Medical Plan: Blood pressure is controlled. Goal is less than 140/90 Continue current medication Work on weight loss and decrease salt and sodium in diet Encouraged exercise (2) Diabetes: Code(s): E11.9 - Type 2 diabetes mellitus without complications Category: Medical Plan: A1c 6.6% is good control. Goal is less than 7% Continue current medication (3) Viral illness: Code(s): B34.9 - Viral infection, unspecified Category: Medical Plan: Mild viral illness, likely just a cold He is using some NyQuil and [place] cough drops Should resolve on its own Orders: Orders AMB Hemoglobin A1c Today Z13.9 - Encounter for screening, unspecified Basic Metabolic Panel Fasting Today E11.9 - Type 2 diabetes mellitus without complications
[2025-03-12 08:27] VITALS: BP 132/60; PULSE 71; RESP 16; TEMP 36.5; O2SAT 97; BMI 30.4
== END 2025-03-12 09:00 | disposition home or self-care (01) ==
LOC: HO.HMCFM 08:17
PROVIDERS: PCP Family Medicine; Visit Provider Family Medicine
DX: I10 Essential (primary) hypertension (principal); E11.9 Type 2 diabetes mellitus without complications; B34.9 Viral infection, unspecified; Z13.9 Encounter for screening, unspecified

== ENCOUNTER → 2025-03-12 08:16 | Outpatient (BNVA) | payer OTHER, SELFPAY | PROVIDERS: PCP Family Medicine; Visit Provider Family Medicine | DX: E11.9 Type 2 diabetes mellitus without complications (principal); Z13.31 Encounter for screening for depression | CPT/HCPCS: 83036; 96127 ==